=== PATIENT | female | born 1980 | race Caucasian/White ===

== ENCOUNTER → 2018-03-10 09:03 | Outpatient (CLI) | payer OTHER, SELFPAY ==
[2018-03-10 10:06] LABS: Hemoglobin 12.9 g/dl (12.0-15.0)
[2018-03-10 10:26] LABS: Hemoglobin A1c 5.2 % (4.2-6.3)
[2018-03-10 10:36] LABS: Ferritin 12 ng/mL (8-252); Iron 138 ug/dL (50-170); Iron Binding Capacity,Total 382 ug/dL (250-450); PERCENT IRON SATURATION 36.1 % (15.0-55.0)
[2018-03-13 13:14] LABS: Transferrin 302 mg/dL (200-370)
== END ==
PROVIDERS: Family Provider Internal Medicine; PCP Internal Medicine; Visit Provider Internal Medicine
DX: D50.9 Iron deficiency anemia, unspecified (principal); R73.03 Prediabetes
CPT/HCPCS: 36415; 82728; 83036; 83540; 83550; 84466; 85018

== ENCOUNTER 2018-11-15 19:32 | Emergency (ER) | payer OTHER, SELFPAY ==
[2018-11-15 19:33] VITALS: BP 120/93; PULSE 124; RESP 20; TEMP 36.7; O2SAT 95; BMI 44.5
--- NOTE | 2018-11-15 20:22 | ED.VISSUMM ---
- ER Visit Summary Date of Service: 11/15/18 Chief Complaint: Vomiting History of Present Illness: The patient is a 38 F presenting with nausea, vomiting, diarrhea. She states this started this morning. She has had approximately 20 episodes of vomiting today and 4 episodes of diarrhea. She denies blood in her stool or emesis. She states her son was recently diagnosed with rotavirus. She has a history of gastroparesis. History of previous cholecystectomy. Denies fever. Denies other complaints. Physical Examination: Vitals are stable. Patient is afebrile. Alert no acute distress. HEENT exam dry mucous membranes Neck is supple. Lungs are clear and equal bilaterally. Heart is regular and tachycardic Abdomen is soft diffuse tenderness with no rebound or guarding Extremities are unremarkable. Skin is warm and dry. No focal neurologic deficit. Remainder of exam is unremarkable. Emergency Department Course and Treatment: Patient given IV fluids, morphine, Zofran. CBC, chemistries unremarkable. Liver lipase are normal. Patient continues to feel nauseated and was given Phenergan. She has improvement following Phenergan. She is given prescription for Phenergan and Zofran. She is advised to follow up with her primary care physician. Advised return to ED for worsening complaints. Disposition: Discharge home Impression: Vomiting and diarrhea This note was generated with [employer] dictation software. It may contain incorrect words, spelling, and punctuation that were not noted in review of the chart prior to signing ED Disposition - Plan for ED Patient: Prescriptions: proMETHazine tablet [Phenergan] 25 mg PO Q6H PRN PRN #10 tablet PRN Reason: Nausea Ondansetron [Zofran Odt] 4 mg PO Q8H PRN PRN #10 tablet PRN Reason: Nausea Referrals: Elena Suggs [Primary Care Provider] -
[2018-11-15] MEDS: 0.9% Normal Saline 1,000 ML 1000 ML IV ×2 (20:38→22:28)
[2018-11-15] MEDS: Ondansetron 4 MG/2 ML Vial IV (20:39)
[2018-11-15] MEDS: Morphine 4 MG/ML Syringe IV (20:39)
[2018-11-15 20:52] LABS: Absolute Neutrophil Count 8.3 X10^3/uL (2.0-7.7); Basophil# 0.01 X10^3/uL; Basophil% 0.1 % (0-1); Differential Indicated SCAN CRITERIA MET; Hematocrit 38.5 % (37-47); Hemoglobin 12.7 g/dl (12.0-15.0); Lymphocyte % 6.5 % (19-41); Mean Corpuscular Hgb 27.4 pg (27.0-32.0); Mean Corpuscular Volume 83.2 fL (81-99); Mean Platelet Vol. 9.2 fl (6.2-12.0); Monocyte# 0.32 X10^3/uL; Monocyte% 3.4 % (0-10); Neutrophil # 8.33 X10^3/uL (2.7-7.7); Neutrophil % 89.8 % (47-70); POSITIVE COUNT NO; POSITIVE DIFFERENTIAL YES; POSITIVE MORPHOLOGY NO; Platelet Count 353 K/mm3 (150-450); RBC Distribution Width CV 13.1 % (11.6-14.6); RBC Distribution Width SD 39.7 fl (35.1-43.9); Red Blood Count 4.63 M/mm3 (4.2-5.4); White Blood Count 9.3 K/mm3 (4.4-11.0)
[2018-11-15 21:03] LABS: ALB/GLOB Ratio 0.9 RATIO (0.9-2.4); AST(SGOT) 19 U/L (15-37); Alanine Aminotransfer ALT/SGPT 24 U/L (13-56); Albumin, Serum 3.6 g/dL (3.2-5.0); Alkaline Phosphatase 93 U/L (45-117); Anion Gap 6 (5-15); BUN 9 mg/dL (7-18); BUN/Creat Ratio 9.8 RATIO (10-20); Calcium,Total 8.9 mg/dL (8.5-10.1); Chloride 104 mmol/L (98-107); Creatinine, Serum 0.92 mg/dL (0.55-1.02); Differential Comment SCANNED; EST Glomerular Filtration Rate 72 mL/min (>60); Est Glom Filt Rate - Afr Amer 87 mL/min (>60); Estimated Creatinine Clearance 79.84 ml/min; Globulin 3.8 g/dL (2.2-4.2); Glucose 98 mg/dL (74-106); Lipase 58 U/L (73-393); Potassium 3.5 mmol/L (3.5-5.1); Protein, Total 7.4 g/dL (6.4-8.2); Sodium Level 136 mmol/L (136-145)
[2018-11-15 21:39] VITALS: BP 132/71; PULSE 116; RESP 18; O2SAT 95
[2018-11-15] MEDS: proMETHazine 25 MG/ML Syringe 6.25 MG IV (22:30)
[2018-11-15 23:00] VITALS: BP 132/71; PULSE 111; RESP 16; O2SAT 95
--- NOTE | 2018-11-15 23:19 | ED.DEP ---
ED Disposition - Plan for ED Patient: Prescriptions: proMETHazine tablet [Phenergan] 25 mg PO Q6H PRN PRN #10 tablet PRN Reason: Nausea Ondansetron [Zofran Odt] 4 mg PO Q8H PRN PRN #10 tablet PRN Reason: Nausea Referrals: Elena Suggs [Primary Care Provider] -
[2018-11-15 23:33] VITALS: BP 132/71; PULSE 111; RESP 16; O2SAT 95
== END 2018-11-15 23:34 | disposition home or self-care (01) ==
PROVIDERS: Emergency Provider Emergency Medicine; Family Provider Internal Medicine; PCP Internal Medicine
DX: R11.2 Nausea with vomiting, unspecified (principal); R19.7 Diarrhea, unspecified; Z90.49 Acquired absence of other specified parts of digestive tract
CPT/HCPCS: 80053; 83690; 85025; 96361; 96374; 96375; 99283; J7030; J2405

== ENCOUNTER 2019-03-08 21:07 | Emergency (ER) | payer OTHER, SELFPAY ==
[2019-03-08 21:08] VITALS: BP 144/85; PULSE 77; RESP 20; TEMP 36.1; O2SAT 98; BMI 44.6
--- NOTE | 2019-03-08 21:57 | ED.VIS.GEN ---
History of Present Illness Chief Complaint: Headache Detail of Chief Complaint: And epigastric pain after vomiting Informant: Patient Onset: Today Context: Gradual Onset - Headache, Sudden Onset - Epigastric pain after vomiting Timing: Continuous - Both continuous since onset Quality: Throbbing unilateral headache and heartburn Location: Right side head and face and epigastrium Current Severity: Severe Maximum Severity: Severe Worsened by: Light with respect to headache, emesis regarding abdominal pain Relieved by: Nothing Associated Symptoms: Photophobia, unilateral headache, nausea and vomiting Narrative: She is a 38-year-old woman with history of migraine headaches who presents with unilateral throbbing right-sided headache with photophobia and nausea with one episode of vomiting. Patient reports severe epigastric pain after vomiting. She has history of hiatal hernia, GERD and gastritis. She states emesis was yellow-green in color. There is no coffee grounds noted or blood. She has not taken anything for her headache or epigastric pain. She denies any other symptoms. There is no radiation of discomfort. There is no food intolerance. Prior similar symptoms: Yes Recent Illness/Hospitalization: No - Past Medical History (1) History of migraine headaches Status: Acute (2) History of gastroesophageal reflux (GERD) Status: Acute Past Medical History - Allergies and Home Meds Allergies/Adverse Reactions: Allergies codeine Allergy (Verified 03/08/19 21:10) Shortness of breath Primary Care Physician: Noah Cortez [Primary Care Provider] - Prior records reviewed: No Surgical History: noncontributory Lives: Spouse/ Significant Other Smoking Status: Never smoker Alcohol: None Drugs: None Review of Systems General: Denies: Chills, Fever, Sweats Eyes: Denies: Visual changes - bilaterally, Blurred Vision - bilaterally, Diplopia ENT: Denies: Bilateral ear pain, Rhinorrhea, Sore throat Cardiovascular: Denies: Chest pain, Palpitations Respiratory: Denies: Dyspnea, Cough, Dyspnea on exertion Gastrointestinal: Reports: Abdominal pain, Nausea, Vomiting. Denies: Diarrhea, Constipation, Melena, Hematochezia, -, - Genitourinary: Denies: Dysuria, Hematuria, Frequency Musculoskeletal: Denies: Back pain, Extremity Pain Skin: Denies: Rash, Wounds Neurological: Reports: Headache. Denies: Weakness, Parasthesia, Numbness, -, - Hematologic: Denies: Easy bruising, Easy bleeding Allergy: Denies: Uticaria, Swelling of the mouth Physical Exam Vital Signs/Narrative: Vital Signs Temp Pulse Resp BP Pulse Ox 03/08/19 21:08 97 F L 77 20 H 144/85 H 98 Inital Vital Signs reviewed: Yes General: Well nourished, Well developed, Acute Distress - Is pressing on the epigastric area and moaning Head: Normocephalic, Atraumatic Eyes: Perrl, EOMI, - - Scopic exam reveals normal cup-to-disc ratio and no papilledema. There is no evidence of exudate or hemorrhage.. Negative for: Pale conjunctiva, Scleral icterus ENT: Moist mucous membranes, No rhinorrhea Neck: Supple, Nontender Cardiovascular: Regular rate, Regular rhythm, No murmurs, Normal S1, Normal S2 Respiratory: No distress, CTA bilaterally, Chest nontender Abdomen: Soft, Nondistended, Normal bowel sounds, Tender - Epigastrium. Negative for: Finnegan's sign Rectal: Deferred Back: Nontender, Normal Inspection Extremities: Nontender, No edema Skin: Normal color, No rash Neurological: Alert, Oriented x3, Cranial nerves II-XII grossly intact, Normal Strength, Normal Sensation, Normal DTR, - - Michelle testing is normal. Psychological: Normal affect, Normal Mood Diagnostic/Tx/Re-eval - EKG Initial EKG Interpretation: Sinus Rhythm - Ventricular rate is 68. NE interval is 146 ms. QRS duration 86 ms. QT interval is 412 seconds. [place] is normal. The EKG is normal. Prior: Unchanged - Medical Decision Making Ki was treated with IV Toradol, Reglan and Benadryl for her headache. She received a GI cocktail for her epigastric pain that started after emesis. Will reevaluate in 30 to 60 minutes Refused Reglan because it makes her mental health unstable. Compazine was ordered in its place. She was reassessed at 2300. She is no longer moaning. Her abdominal pain is resolved. Her headache is essentially resolved. He feels comfortable going home. Will discharge to home with appropriate home-going instructions. ED Disposition - Plan for ED Patient: Disposition: Home or Assisted Living Diagnosis: Migraine headache without aura, Esophagitis, Nausea and vomiting Instructions: ED, Migraine (Classical), GERD (Adult) Referrals: Noah Cortez [Primary Care Provider] - As Needed
[2019-03-08] MEDS: DiphenhydrAMINE 50 MG/ML Syringe 25 MG IV (22:13)
[2019-03-08] MEDS: Ketorolac 30 MG/ML Syringe 15 MG IV (22:13)
[2019-03-08] MEDS: Mag Hydrox/Al Hydrox/Simeth 30 ML UDC PO (22:13)
[2019-03-08] MEDS: proCHLORPERazine 10 MG/2 ML Vial IV (22:18)
[2019-03-08 23:12] VITALS: PULSE 73; RESP 18; O2SAT 98
== END 2019-03-08 23:13 | disposition home or self-care (01) ==
PROVIDERS: Emergency Provider Emergency Medicine; Family Provider Family Medicine; PCP Family Medicine
DX: G43.009 Migraine without aura, not intractable, without status migrainosus (principal); K21.0 Gastro-esophageal reflux disease with esophagitis; R11.2 Nausea with vomiting, unspecified; K29.70 Gastritis, unspecified, without bleeding; K44.9 Diaphragmatic hernia without obstruction or gangrene
CPT/HCPCS: 93005; 96374; 96375; 99284; J7030; A4216

== ENCOUNTER 2019-08-26 13:11 | Emergency (ER) | payer OTHER, SELFPAY ==
[2019-08-26 13:12] VITALS: BP 146/89; PULSE 85; RESP 20; TEMP 37.2; O2SAT 97; BMI 44.6
--- NOTE | 2019-08-26 13:35 | RAD_ITS ---
STUDY: X-RAY CHEST REASON FOR EXAM: Female, 39 years old. DIAGNOSED WITH INFLUENZA B THIS PAST WEDS PER PATIENT. NOW FEELS WORSE WITH WEAKNESS, DIZZINESS AND CHEST COUGH AND CONGESTION WORSENING. TECHNIQUE: PA and lateral views of the chest. COMPARISON: None. FINDINGS: The lungs are clear and expanded. There is no demonstrated pleural abnormality. Normal size heart. Normal mediastinum and gustavo. Normal visualized pulmonary arteries. Normal visualized aortic arch and descending thoracic aorta. There are diffuse degenerative changes of the visualized thoracic spine. Normal visualized ribs, clavicles, and shoulders. There is postoperative change of the upper abdomen. RAD/Chest PA and Lateral IMPRESSION: Normal x-ray examination of the chest. Electronically Signed: Marky Calles MD at 14:19 EST , Service support ,
[2019-08-26] MEDS: 0.9% Normal Saline 1,000 ML 999 ML IV (13:47)
[2019-08-26 13:49] VITALS: PULSE 96; RESP 20
[2019-08-26] MEDS: Ipratropium/Albuterol Sulfate 3 ML AMPUL.NEB INHALATION (13:49)
--- NOTE | 2019-08-26 14:16 | ED.DCSUM_ITS ---
History of Present Illness Informant: Patient, Significant Other Onset: Days - 4 days Context: Gradual Onset Timing: Continuous Quality: aching Location: myalgias Current Severity: Severe Maximum Severity: Severe Worsened by: Swallowing, Eating Solids, Drinking Liquids Relieved by: Tylenol, NSAIDs Associated Symptoms: Myalgias, Nausea, Diarrhea, Productive Cough. Negative for: Nasal Congestion, Headache, Sinus Pressure, Vomiting, Shortness of Breath, Chest Pain, Nonproductive cough, Hemoptysis Narrative: 39-year-old female history of asthma and fibromyalgia and gastroparesis presents to the emergency department with flulike symptoms. She was diagnosed with infl uenza B about 4 days ago. She went back to the urgent care today because she is still having a cough and they told her to go to the emergency department because she may have pneumonia. She has not had a fever today. She is not having any vomiting. Has been having diarrhea since she started the Tamiflu 3 days ago. No melena or hematochezia. No chest pain or shortness of breath. No wheezing. No leg pain or swelling. No urinary symptoms. No rash. No sore throat or congestion. No headache or neck pain. She is not lightheaded or dizzy. Prior similar symptoms: Yes Recent Illness/Hospitalization: Yes <Jono Terrazas - Last Filed: 08/26/19 14:31> <Karen Damon - Last Filed: 08/26/19 15:05> Chief Complaint: Cough Past Medical History Prior records reviewed: Yes Past Medical History: - - Fibromyalgia gastroparesis asthma Surgical History: cholecystectomy Lives: With Family Smoking Status: Former smoker Alcohol: None Drugs: None <Jono Terrazas - Last Filed: 08/26/19 14:31> <Karen Damon - Last Filed: 08/26/19 15:05> - Allergies and Home Meds Allergies/Adverse Reactions: Allergies codeine Allergy (Verified 08/26/19 13:11) Shortness of breath Primary Care Physician: Noah Cortez [Primary Care Provider] - Review of Systems All systems negative except as indicated General: Reports: Chills, Fever, Malaise Eyes: Denies: Visual changes - bilaterally, Blurred Vision - bilaterally, Diplopia ENT: Reports: Rhinorrhea, Sore throat Cardiovascular: Denies: Chest pain, Palpitations, Heart racing Respiratory: Reports: Cough, Sputum. Denies: Dyspnea, Dyspnea on exertion, Orthopnea, Paroxysmal nocturnal dyspnea Gastrointestinal: Reports: Nausea, Diarrhea. Denies: Abdominal pain, Vomiting, Constipation, Melena, Hematochezia Genitourinary: Denies: Dysuria, Hematuria, Frequency Musculoskeletal: Reports: Myalgias. Denies: Arthralgias, Neck pain, Back pain, Swelling, Extremity Pain Skin: Denies: Rash, Abscess, Abrasions, Wounds Neurological: Denies: Headache, Weakness, Parasthesia <Jono Terrazas - Last Filed: 08/26/19 14:31> Physical Exam Vital Signs/Narrative: Vital Signs Temp Pulse Resp BP Pulse Ox 08/26/19 13:12 98.9 F 85 20 H 146/89 H 97 Inital Vital Signs reviewed: Yes General: Well nourished, Well developed Head: Normocephalic, Atraumatic Eyes: Perrl, EOMI Ears: Normal external canal, TM's clear Nose: Normal Inspection, No Rhinorrhea Mouth/Throat: Normal Inspection, No Posterior Erythema, Airway Patent Tonsils: Negative for: Right Tonsilar Erythema, Right Tonsilar Exudates, Left Tonsilar Exudates, Right Tonsilar Swelling, Left Tonsilar Swelling Neck: Supple, Nontender, No Lymphadenopathy, No Meningismus Cardiovascular: Regular rate, Regular rhythm, No murmurs Respiratory: No distress, CTA bilaterally, Wheezing Abdomen: Soft, Nontender, Nondistended, Normal bowel sounds, No masses Back: Nontender, Normal Inspection Extremities: Nontender, No edema Skin: Normal color, No rash Neurological: Alert, Oriented x3 Psychological: Normal affect <Jono Terrazas - Last Filed: 08/26/19 14:31> Vital Signs/Narrative: Vital Signs Temp Pulse Resp BP Pulse Ox 08/26/19 13:49 96 20 H 08/26/19 13:12 98.9 F 85 20 H 146/89 H 97 <Karen Damon - Last Filed: 08/26/19 15:05> Diagnostic/Tx/Re-eval Chest X-Ray - ED: 2 View, Read by ED Physician, Read by Radiologist, No Acute Disease - Medical Decision Making Patient was treated with an aerosol. 2 view chest x-ray was unremarkable. Patient was given a liter of IV fluids. Repeat exam she feels much improved. Repeat abdominal exam soft and nontender. Patient is able to tolerate by mouth. She states that she already has Zofran to take at home. She was encouraged to use her nebulizers and aerosols which she has been noncompliant with for the last several days. <Jono Terrazas - Last Filed: 08/26/19 14:31> - Medical Decision Making I have personally performed a [id number] assessment of the patient and have reviewed the PA note. My bee findings include 39-year-old female presenting with cough, recently diagnosed with influenza. She has no fever today. Chest x-ray is unremarkable. Advised to follow-up with primary care physician. Advised return to ED for worsening complaints. <Karen Damon - Last Filed: 08/26/19 15:05> ED Disposition <Jono Terrazas - Last Filed: 08/26/19 14:31> <Karen Damon - Last Filed: 08/26/19 15:05> - Plan for ED Patient: Disposition: Home or Assisted Living Diagnosis: URI due to influenza, History of gastroesophageal reflux (GERD), History of migraine headaches Instructions: INFLUENZA (Adult) Referrals: Noah Cortez [Primary Care Provider] -
== END 2019-08-26 14:47 | disposition home or self-care (01) ==
PROVIDERS: Emergency Provider Physician Assistant Medical; PCP Family Medicine
DX: J10.1 Influenza due to other identified influenza virus with other respiratory manifestations (principal); K21.9 Gastro-esophageal reflux disease without esophagitis; M79.7 Fibromyalgia; J45.909 Unspecified asthma, uncomplicated; Z79.899 Other long term (current) drug therapy; Z87.891 Personal history of nicotine dependence; G43.909 Migraine, unspecified, not intractable, without status migrainosus
CPT/HCPCS: 71046; 94640; 96360; 99282; J7030

== ENCOUNTER → 2020-08-18 10:51 | Outpatient (CLI) | payer OTHER, SELFPAY ==
[2020-08-14 13:39] VITALS: BMI 47.1
--- NOTE | 2020-08-18 10:56 | US_ITS ---
STUDY: ULTRASOUND OF THE FEMALE PELVIS - COMPLETE REASON FOR EXAM: Female, 40 years old. Heavy pain LMP: 07/26/2020. TECHNIQUE: Transabdominal and Transvaginal TECHNICAL QUALITY: Adequate. COMPARISON: None. FINDINGS: The uterus is anteverted and is tilted to the left side of the pelvis. The uterus measures 9.1 cm x 7.5 cm x 5.1 cm. There is a 4.9 cm x 4.8 cm x 3.4 cm cervical fibroid. The endometrium measures 1.3 mm in thickness, and is hyperechoic. There is no demonstrated endometrial mass. There is no demonstrated myometrial mass. I.U.D. - The patient does not have an I.U.D. The right ovary is visualized. The right ovary measures 2.6 cm x 2.4 cm x 1.9 cm. There is no right ovarian cyst or ovarian mass. There is no visualized right adnexal mass or complex lesion. There is normal arterial and normal venous vascularity. The left ovary is visualized. The left ovary measures 2.6 cm x 1.6 cm x 2.3 cm. There is no left ovarian cyst or ovarian mass. There is no visualized left adnexal mass or complex lesion. There is normal arterial and normal venous vascularity. There is no fluid in the cul-de-sac. The pre void volume of the bladder was 337 ml. Polycystic ovary disease: No. US/Pelvic (Non ) IMPRESSION: 4.9 cm x 4.8 cm x 3.4 cm cervical fibroid. Electronically Signed: Marcio Lorenz MD at 15:32 EST , Service support ,
--- NOTE | 2020-08-18 10:56 | US_ITS ---
STUDY: ULTRASOUND OF THE FEMALE PELVIS - COMPLETE REASON FOR EXAM: Female, 40 years old. Heavy pain LMP: 07/26/2020. TECHNIQUE: Transabdominal and Transvaginal TECHNICAL QUALITY: Adequate. COMPARISON: None. FINDINGS: The uterus is anteverted and is tilted to the left side of the pelvis. The uterus measures 9.1 cm x 7.5 cm x 5.1 cm. There is a 4.9 cm x 4.8 cm x 3.4 cm cervical fibroid. The endometrium measures 1.3 mm in thickness, and is hyperechoic. There is no demonstrated endometrial mass. There is no demonstrated myometrial mass. I.U.D. - The patient does not have an I.U.D. The right ovary is visualized. The right ovary measures 2.6 cm x 2.4 cm x 1.9 cm. There is no right ovarian cyst or ovarian mass. There is no visualized right adnexal mass or complex lesion. There is normal arterial and normal venous vascularity. The left ovary is visualized. The left ovary measures 2.6 cm x 1.6 cm x 2.3 cm. There is no left ovarian cyst or ovarian mass. There is no visualized left adnexal mass or complex lesion. There is normal arterial and normal venous vascularity. There is no fluid in the cul-de-sac. The pre void volume of the bladder was 337 ml. Polycystic ovary disease: No. US/Transvaginal Non- IMPRESSION: 4.9 cm x 4.8 cm x 3.4 cm cervical fibroid. Electronically Signed: Marcio Lorenz MD at 15:32 EST , Service support ,
== END ==
PROVIDERS: Referring Provider Obstetrics & Gynecology; Visit Provider Obstetrics & Gynecology
DX: N92.0 Excessive and frequent menstruation with regular cycle (principal)
CPT/HCPCS: 76830; 76856

== ENCOUNTER 2020-09-30 06:18 | Day surgery (SDC) | payer OTHER, SELFPAY ==
[2020-08-22 13:01] VITALS: BMI 47.2
[2020-09-15 11:14] VITALS: BMI 47.5
[2020-09-29 10:20] LABS: Hematocrit 36.3 % (37-47); Mean Corp Hgb Conc 30.3 g/dL (32-36); Mean Corpuscular Volume 85.8 fL (81-99); Mean Platelet Vol. 9.5 fl (6.2-12.0); Platelet Count 391 K/mm3 (150-450); RBC Distribution Width CV 18.9 % (11.6-14.6); RBC Distribution Width SD 56.9 fl (35.1-43.9); Red Blood Count 4.23 M/mm3 (4.2-5.4)
[2020-09-29 10:53] LABS: Glucose 114 mg/dL (74-106); Magnesium 1.7 mg/dL (1.6-2.6)
[2020-09-30] VITALS (15 sets, daily range): BP systolic 100–151; BP diastolic 48–87; PULSE 89–109; RESP 16–18; TEMP 36.3–36.8; O2SAT 89–100; BMI 47.4; BMI 47.5
[2020-09-30 06:58] LABS: Internal QC Validated? YES +Cl - CLEAR BKGD; Pregnancy, Urine Negative Negative
[2020-09-30] MEDS: Phenazopyridine 95 MG Tablet 190 MG PO (07:00)
[2020-09-30] MEDS: Celecoxib 200 MG Capsule 400 MG PO (07:00)
[2020-09-30] MEDS: Acetaminophen 500 MG Tablet 1000 MG PO ×3 (07:00→23:15)
[2020-09-30] MEDS: dexAMETHasone 10 MG/ML Vial 8 MG IV (07:00)
[2020-09-30] MEDS: Gabapentin 600 MG Tablet PO (07:00)
[2020-09-30] MEDS: Lactated Ringers 1,000 ML 40 ML IV ×4 (07:00→14:34)
--- NOTE | 2020-09-30 07:19 | PCM.HPOB.BLA ---
- Problem List (1) Abnormal uterine bleeding Status: Acute History and Physical Date of Admission: 09/30/20 Intake Vital Signs 09/15/20 Height 5 ft 7 in 09/15/20 Weight: 303 lb 8 oz 09/15/20 BMI 47.5 09/15/20 BP 120/76 Intake Visit Reasons: robotic TVH BS Cysto Sales Support Coordinator Required: No Is patient in pain?: No Allergies metoclopramide [From Reglan] Allergy (Mild, Verified 09/15/20 11:15) psych codeine Allergy (Verified 09/15/20 11:15) Shortness of breath Medications Esomeprazole Mag Trihydrate [Nexium] 40 mg PO DAILY 11/15/18 [History Confirmed 09/15/20] bupropion HCl 150 mg 24 hr tablet, extended release 300 mg PO DAILY tab 08/14/20 [History Confirmed 09/15/20] cholecalciferol (vitamin D3) 50 mcg (2,000 unit) capsule 50 mcg PO DAILY 08/14/20 [History Confirmed 09/15/20] metoprolol succinate 25 mg tablet,extended release 24 hr 50 mg PO DAILY tab 08/14/20 [History Confirmed 09/15/20] multivitamin 1 tab PO DAILY 08/14/20 [History Confirmed 09/15/20] promethazine 25 mg tablet 12.5 mg PO Q4H PRN PRN tab 08/14/20 [History Confirmed 09/15/20] Is last menstrual period known: Yes Post menopausal: No Patient : No : No PFSH Medical History Asthma (Chronic) Acid reflux (Acute) Chavez disease (Chronic) Anemia (Acute) GI bleed (Acute) Gastroparesis (Chronic) Anxiety (Acute) Insomnia (Acute) Surgical History History of esophagogastroduodenoscopy (EGD) (Resolved) S/P cholecystectomy (Resolved) S/P tonsillectomy (Resolved) hysteroscopy ablation (Resolved) Family History Grandfather Prostate cancer Grandmother Diabetes Other Kidney disease Social History (Updated 09/15/20 @ 14:[address] Sayda Wills MD) Smoking Status: Former smoker alcohol intake: never substance use type: does not use caffeine: Yes what type of physical activity do you participate in: none seatbelt use: always do you feel safe at home: Yes additional social history: - Michael HPI robotic TVH BS Cysto: Details: JULISA PIZANO is a 40 year old who presents for pre-op visit for RTLH, BS, possible BSO, cysto for failed endometrial ablation. Pregancy History 2 Elective abortions Hx Para 2 Spontaneous abortions Hx # Term Pregnancies Ectopic pregnancies Hx # Pregnancies Multiple births # of living children Past Pregnancies Del. Date Name GA/Weeks Outcome Route Bth Weight Infant Gen Labor Lgth Anesthesia Del Locatn Provider FOB Unknown Leander Unknown Jamie ROS Const Constitutional: Reports system reviewed and no additional complaints, except as docu; denies chills or fever(s) Eyes Eyes: Reports system reviewed and no additional complaints, except as docu ENT ENT: Reports system reviewed and no additional complaints, except as docu Cardio Card: Reports system reviewed and no additional complaints, except as docu; denies chest pain, leg swelling or rapid, pounding, or irregular heartbeat Resp Resp: Reports system reviewed and no additional complaints, except as docu; denies dyspnea GI GI: Reports system reviewed and no additional complaints, except as docu, bloating and nausea; denies constipation or vomiting : Reports system reviewed and no additional complaints, except as docu and pelvic pain; denies painful urination, urinary frequency, urinary hesitancy, urinary urgency, vaginal discharge, vaginal odor or vaginal itching Musc Musc: Reports system reviewed and no additional complaints, except as docu Skin Skin/Breast: Reports system reviewed and no additional complaints, except as docu Neuro Neuro: Reports system reviewed and no additional complaints, except as docu Psych Psych: Reports system reviewed and no additional complaints, except as docu Endo Endo: Reports system reviewed and no additional complaints, except as docu Exam Const General: cooperative, healthy appearing, comfortable, well developed, well groomed Orientation: alert, awake, oriented x3 Neck Neck: normal visual inspection, full ROM Resp Effort & Inspection: normal respiratory effort, able to speak in complete sentences, symmetric chest movement Cardio Rate: regular rate Skin General: no rashes or lesions noted, elasticity normal, turgor normal Lesions: no lesions Rashes: no rashes Neuro General: alert, awake, oriented x3 Cranial Nerves: CN's II-XI intact bilaterally, PERRL, EOM intact bilaterally Cognition: normal cognition Speech: speech normal Gait: normal gait Extrem General: normal to inspection, full ROM, no pedal edema Psych Appearance: grossly normal Mental Status: mental status grossly normal Mood: congruent mood Affect: normal affect Speech and Movement: speech and movement normal Attitude: cooperative Thought Process: normal Thought Content: normal Assessment & Plan 1. Abnormal uterine bleeding N93.9 Plan Patient presents for pre-op visit for robotic total laparoscopic hysterectomy, bilateral salpingectomy, possible bilateral salpingoophorectomy, cystoscopy Received surgical clearance by PCP and GI No changes to medical history or ROS. Again reviewed the risks of surgery and patient denies questions and concerns. Consent form signed with patient in office today. UPDATE- I have seen the patient and performed any clinically relevant updates to the history and physical exam. Sayda Wills MD
[2020-09-30 07:40] LABS: Bedside Glucose 63 mg/dL (70-110)
--- NOTE | 2020-09-30 08:35 | HYST_PTH ---
PATIENT: JULISA PIZANO LOC: [facility] [place] U#:[id number] AGE/SX: 40/F ROOM: RE09/30/[address]: Dr. Sayda Wills MD : 1980 BED: DIS: 10/01/2020 SPEC #: [id number] RECD: 09/30/20 14:21 STATUS: YOLY ZUÑIGA #: [id number] ONUR: 09/30/20 08:[address]: Sayda Wills DEPT: SURGICAL PATHOLOGY RECD BY: Gayle Mcnally Tissues: Uterus, NOS Procedures: Surgery Specimen Level V HEADER OPERATION: ERAS, robotic assisted total laparoscopic hysterectomy, bilateral salpingectomy PRE-OP DIAGNOSIS: Abnormal uterine bleeding TISSUE SUBMITTED: Uterus, cervix, bilateral fallopian tubes MICROSCOPIC DIAGNOSIS Uterus, cervix and bilateral fallopian tubes, hysterectomy and bilateral salpingectomy: Cervix - mild chronic inflammation and squamous metaplasia. Endometrium - proliferative endometrium. Myometrium - cellular leiomyoma (5 cm in greatest dimension). Bilateral fallopian tubes - no pathologic diagnosis. Paratubal cyst. SJ:rg 10/02/2020 MICROSCOPIC DESCRIPTION Slides are reviewed. GROSS DESCRIPTION Received in fixative is one container labeled with the patient's name and designated uterus. The specimen consists of a uterus with attached cervix measuring 9.7 x 7.5 x 5 cm and weighing 160 gm. Also present in the specimen container is an irregular fragment of lobulated pink-white, rubbery soft tissue measuring 5 x 3.5 cm and grossly resembling a leiomyoma. Sections of this mass reveal michaud whorled cut surfaces without areas of hemorrhage, necrosis or cystic degeneration. Also present in the container are two fallopian tubes, each with an average length of 6.5 cm and average diameter of 0.6 cm. One fallopian tube has a normal fimbriated end and contains a smooth, glistening cyst containing clear fluid. The cyst measures 1.5 cm in greatest dimension. The other fallopian tube is similar in appearance. No paratubal cysts are identified. The ectocervix is grossly unremarkable. The endocervical canal measures 3.3 cm in length and is grossly unremarkable. The triangular endometrial cavity measures 3.8 x 3.5 cm. The velvety, light michaud endometrium measures up to 0.2 cm in thickness and is free of mass lesions. The uterine wall measures up to 2.5 cm in thickness and does not reveal any additional mass lesions. [employer]el [employer] sections are submitted in ten cassettes as follows: 1 - anterior cervix, 2 - posterior cervix, 3 & 4 - anterior uterine wall, 5 & 6 - posterior uterine wall, 7 & 8 - nodular tissue free in container, 9 - one fallopian tube and paratubal cyst, 10 - the other fallopian tube. / AM:rashmi 10/01/20 TC:1 CPT: 75108
[2020-09-30] MEDS: Ropivacaine 0.5% 30 ML Vial (09:00)
[2020-09-30] MEDS: Ketorolac 30 MG/ML Syringe IV ×2 (17:10→23:18)
--- NOTE | 2020-09-30 18:22 | OP.PCM_ITS ---
Problem List (1) Abnormal uterine bleeding Status: Acute Report of Operation Date of Procedure: 09/30/20 Pre-Operative Diagnosis: Abnormal uterine bleeding, failed endometrial ablation Post-Operative Diagnosis: Same Surgery/Procedure Performed:: Robotic assisted total laparoscopic hysterectomy, bilateral salpingectomy, cystoscopy Description of Surgical Findings:: Globally enlarged uterus with large posterior fibroid filling the posterior cul-de-sac. Normal-appearing bilateral fallopian tubes and ovaries. basic sciences professor: Mukesh Molina Type of Anesthesia:: General Special Medications: Pyridium pre-op Specimen's removed: Uterus, cervix, bilateral fallopian tubes Drains: Curry Estimated Blood Loss (mL): 50 cc Description of Procedure: The patient was taken to the operating room where general anesthesia was obtained without difficulty. She was prepped and draped in the dorsolithotomy position with yellowfin stirrups. Weighted speculum was placed in the posterior aspect of the vagina and the anterior lip of the cervix was grasped with a single-tooth tenaculum. The cervix was sequentially dilated in order to accommodate a Aventicular uterine manipulator. Gloves were changed and attention was directed to the abdominal cavity. Initially, the umbilicus was instilled with 10 cc of 0.25% Marcaine and grasped and elevated with towel clamps. A varies needle was inserted through the base of the umbilicus, but opening pressure was noted to be high and preoperative placement could not be confirmed. A 5 mm incision was made in the left upper quadrant and varies needle insufflation was again attempted, but unsuccessful. Attempt was then made at entry through a 5 mm Optiview port in the left upper quadrant and at the umbilicus, but both were unsuccessful. The decision was made to proceed with open entry. A vertical incision was made at the base of the umbilicus and extended inferiorly. The subcutaneous tissue was dissected away until the fascia could be identified. The fascia was grasped sequentially with Everardo clamps. The fascia was incised using the scalpel. This incision was extended through the peritoneum and abdominal entry was confirmed. 0 Vicryl sutures were placed in the fascia to used to hold the Monique trocar in place. A balloon trocar was inserted and the balloon was inflated. Towel clamps were used to maintain a seal to decrease loss of insufflation. The abdomen was insufflated. A 5 mm port was placed in the left upper quadrant. 8 mm incisions were made in the right and left lower quadrants and approximately 2 fingerbreadths above the umbilicus and robotic ports were placed. A 12 mm accessory port was placed in the right upper quadrant. Findings were as above. The patient was placed in steep Trendelenburg positioning and the bowel was displaced superiorly. The da Wander robot was subsequently docked without any complications. The bilateral fallopian tubes were elevated and grasped. The mesosalpinx was cauterized and transected bilaterally. The fallopian tubes were amputated at the cornual region and removed through the accessory port. The right utero-ovarian ligament was identified and cauterized and transected with the bipolar cautery and the EndoShears. This was followed by the round ligament, which was cauterized and transected in a similar fashion. The anterior leaf of the broad ligament. While attempting to dissect the bladder off the uterus and skeletonize the uterine arteries, visual visualization was noted to be poor due to lack of operative space given the location of the camera port. Complete the remainder of the case laparoscopically. The robot was undocked. The left utero-ovarian ligament was identified, cauterized, and transected using the LigaSure device. The round ligament was grasped, cauterized, and transected. The bladder flap was further developed and the bladder was noted to be well out of the operative field. The uterine arteries bilaterally were skeletonized, cauterized, and transected. At this time, the uterus was blanched effectively demonstrating that the blood supply to the uterus had been terminated. Point, attention was directed to the large posterior fibroid. Monopolar scissors were used to make an incision in the uterine serosa which was carried down to the level of the fibroid effectively dissecting through the capsule of the fibroid. The fibroid was grasped using a single-tooth tenaculum and a combination of blunt and sharp dissection were used to remove the fibroid from the uterus. The colpotomy cup was made with monopolar scissors and carried around the entire cervicovaginal junction until the cervix and uterus were amputated. The cervix and uterus were removed from the abdominal cavity through the vagina. The fibroid was then removed through the vagina. A pneumooccluder was then placed in the vagina. At this point, the robot was again docked to allow for closure of the vaginal cuff. The cuff was then closed in a running fashion using oh V-Loc suture. The abdomen was copiously irrigated, cleared of all clots and debris, and the pedicles were examined and noted to be hemostatic. Amanda was placed over the pedicles. Occluder was then removed from the vagina. Attention was then directed to the pelvis to perform a cystoscopy. Curry catheter was removed and the cystoscope was introduced into the bladder. The bladder was inspected and no evidence of trauma was noted. Vigorous spill was noted bilaterally from the ureters. The cystoscope was then removed from the bladder. Gloves were changed and all the instruments were subsequently removed from the patient?s abdomen and vagina. The fascial defect in the umbilical incision was closed using 0 Vicryl suture. The skin incisions were closed with #4-0 Monocryl for excellent hemostasis and reapproximation. All counts were correct x2. The patient was awakened and taken to the recovery room in stable condition. - Complications None apparent - Admit VTE Documentation VTE Present on Admission: No VTE Mechan Device Prophylaxis: SCD's VTE Pharm Prophylaxis ordered?: Yes Multi Select Codes - Urinary/Genital Urinary/Genital CPT Codes: 81434 TLH+BS/O >250gr uterus - Robotic assisted
[2020-09-30] MEDS: oxyCODONE 5 MG Tablet PO (21:56)
[2020-09-30] MEDS: Docusate Sodium 100 MG Capsule PO (21:56)
[2020-09-30] MEDS: Ondansetron ODT 4 MG Tablet PO (21:56)
[2020-09-30] MEDS: 0.9% Saline Lock 10 ML Syringe IV (23:16)
[2020-10-01] MEDS: Ketorolac 30 MG/ML Syringe IV (05:08)
[2020-10-01] MEDS: Acetaminophen 500 MG Tablet 1000 MG PO ×2 (05:09→12:44)
[2020-10-01 05:30] VITALS: BP 117/59; PULSE 86; RESP 16; TEMP 36.3; O2SAT 100
[2020-10-01 05:32] LABS: Hematocrit 32.8 % (37-47); Hemoglobin 9.6 g/dL (12.0-15.0); Mean Corp Hgb Conc 29.3 g/dL (32-36); Mean Corpuscular Hgb 25.6 pg (27.0-32.0); Mean Corpuscular Volume 87.5 fL (81-99); Mean Platelet Vol. 9.3 fl (6.2-12.0); Platelet Count 377 K/mm3 (150-450); RBC Distribution Width CV 18.9 % (11.6-14.6); RBC Distribution Width SD 59.9 fl (35.1-43.9); Red Blood Count 3.75 M/mm3 (4.2-5.4); White Blood Count 13.6 K/mm3 (4.4-11.0)
[2020-10-01 08:02] VITALS: O2SAT 100
--- NOTE | 2020-10-01 08:31 | PN.OBGYN_ITS ---
Patient Problems: Active and Suspected Problems (Last Reviewed 09/15/20 @ 11:16 by Jesika Singh) Abnormal uterine bleeding (Acute) Subjective: Patient seen and examined. Reports doing well. Pain well controlled with NSAIDs and Tylenol. Tolerating clear liquids without nausea or vomiting. Attempting to advance diet this morning. Was able to ambulate last night without difficulty. Curry catheter to come out this morning. Objective: Laboratory Tests 10/01/20 09/30/20 09/30/20 Range/Units 05:26 06:50 06:45 WBC 13.6 H (4.4-11.0) K/mm3 RBC 3.75 L (4.2-5.4) M/mm3 Hgb 9.6 L (12.0-15.0) g/dL Hct 32.8 L (37-47) % MCV 87.5 (81-99) fL MCH 25.6 L (27.0-32.0) pg MCHC 29.3 L (32-36) g/dL RDW Std Deviation 59.9 H (35.1-43.9) fl RDW Coeff of Saud 18.9 H (11.6-14.6) % Plt Count 377 (150-450) K/mm3 MPV 9.3 (6.2-12.0) fl Glucose (74-106) mg/dL Magnesium (1.6-2.6) mg/dL Urine Test Negative Negative POC Glucose 63 L (70-110) mg/dL Blood Type Antibody Screen 09/29/20 09/29/20 09/29/20 Range/Units 09:37 09:37 09:37 WBC 8.0 (4.4-11.0) K/mm3 RBC 4.23 (4.2-5.4) M/mm3 Hgb 11.0 L (12.0-15.0) g/dL Hct 36.3 L (37-47) % MCV 85.8 (81-99) fL MCH 26.0 L (27.0-32.0) pg MCHC 30.3 L (32-36) g/dL RDW Std Deviation 56.9 H (35.1-43.9) fl RDW Coeff of Saud 18.9 H (11.6-14.6) % Plt Count 391 (150-450) K/mm3 MPV 9.5 (6.2-12.0) fl Glucose 114 H (74-106) mg/dL Magnesium 1.7 (1.6-2.6) mg/dL Urine Test Negative POC Glucose (70-110) mg/dL Blood Type O POSITIVE Antibody Screen NEGATIVE - Physical Exam Vitals/I&O's: Vital Signs Temp Pulse Resp BP Pulse Ox 97.4 F L 86 16 117/59 L 100 10/01/20 05:30 10/01/20 05:30 10/01/20 05:30 10/01/20 05:30 10/01/20 08:02 Oxygen Flow Rate (L/min) 2 Oxygen Delivery Method Nasal Cannula Weight: 302 lb 11.115 oz Body Mass Index (BMI) 47.5 Intake and Output for Last 24 Hours 09/29/20 09/30/20 10/01/20 23:59 23:59 23:59 Intake Total 4715 / 4715 1197.33 / 1197.33 Output Total 1850 / 1850 1100 / 1100 Balance 2865 / 2865 97.33 / 97.33 General: Alert, Oriented x3, Cooperative, No apparent distress, Well developed, Well nourished HEENT: Atraumatic, PERRLA, EOMI, Normocephalic Neck: Supple, No JVD Lungs: Clear to auscultation, Normal air movement Cardiovascular: Regular rate, Regular Rhythm Abdomen: Bowel Sounds Present, Soft, Non Tender, Non-Distended, - - Incisions clean dry and intact with dressings in place Extremities: No edema, No Calf Tenderness Neurological: Cranial nerves II-XII grossly intact, Neuro grossly intact Psych/Mental Status: Normal Affect, Appropriate Microbiology Past 72 Hours 09/29/20 09:30 Interface Orders SARS-CoV-2 Antigen (Rapid) - Final Laboratory Results 10/01/20 05:26: WBC 13.6 H, RBC 3.75 L, Hgb 9.6 L, Hct 32.8 L, MCV 87.5, MCH 25.6 L, MCHC 29.3 L, RDW Std Deviation 59.9 H, RDW Coeff of Saud 18.9 H, Plt Count 377, MPV 9.3 Current Medications Acetaminophen (Acetaminophen 500 Mg Tablet) 1,000 mg PO Q6 AGNES Last Admin: 10/01/20 05:09 Dose: 1,000 mg Documented by: Albuterol Sulfate (Albuterol 2.5 Mg/3 Ml Vial.Neb.) 2.5 mg INHALATION Q6H PRN PRN PRN Reason: Asthma Bupropion HCl (Bupropion (Xl) 150 Mg Tablet.Xl) 300 mg PO DAILY [facility] Docusate Sodium (Docusate Sodium 100 Mg Capsule) 100 mg PO BID [facility] Last Admin: 09/30/20 21:56 Dose: 100 mg Documented by: Enoxaparin Sodium (Enoxaparin 40 Mg/0.4 Ml Syringe) 40 mg SC DAILY [facility] Sodium Chloride () 250 mls @ 15 mls/hr IV .[id number] PRN PRN Reason: Saline Flush Sodium Chloride () 250 mls @ 15 mls/hr IV .[id number] PRN PRN Reason: Additional IVPB Infusion Ketorolac Tromethamine (Ketorolac 30 Mg/Ml Syringe) 30 mg IV Q6 [facility] Stop: 10/02/20 00:01 Last Admin: 10/01/20 05:08 Dose: 30 mg Documented by: Magnesium Chloride (Magnesium Chloride 64 Mg Delay Rel.Tablet) 128 mg PO DAILY PRN PRN PRN Reason: Constipation Metoprolol Succinate (Metoprolol(Xl)Succ 50 Mg Tablet) 50 mg PO DAILY [facility] Multivitamins (Multivitamins,Therapeutic Tablet) 1 tablet PO DAILYCM [facility] Nutritional Formula (Lactose Free) (Ensure Enlive 120 Ml Liquid) 120 ml PO TIDCM [facility] Ondansetron HCl (Ondansetron Odt 4 Mg Tablet) 4 mg PO Q6H PRN PRN PRN Reason: NAUSEA Last Admin: 09/30/20 21:56 Dose: 4 mg Documented by: Oxycodone HCl (Oxycodone 5 Mg Tablet) 5 - 10 mg PO Q4H PRN PRN PRN Reason: Pain Score 1-10 Last Admin: 09/30/20 21:56 Dose: 5 mg Documented by: Pantoprazole Sodium (Pantoprazole Sodium 40 Mg Tablet) 40 mg PO DAILY [facility] Last Admin: 10/01/20 05:39 Dose: Not Given Documented by: Sodium Chloride (0.9% Saline Lock 10 Ml Syringe) 10 - 40 ml IV UD PRN PRN Reason: SALINE FLUSH Last Admin: 09/30/20 23:16 Dose: 10 ml Documented by: Medical Necessity - Tobacco Use Smoking Status: Former smoker Tobacco Use: Non-smoker Assessment/Plan All Active Problems (Last Reviewed 09/15/20 @ 11:16 by Jesika Singh) Abnormal uterine bleeding (Acute) Acid reflux (Acute) Anemia (Acute) GI bleed (Acute) History of migraine headaches (Acute) History of gastroesophageal reflux (GERD) (Acute) 40-year-old female postop day 1 status post robotic assisted total laparoscopic hysterectomy, bilateral salpingectomy, cystoscopy Postop state -Patient doing well. -Pain controlled without opioid medications. -Incisions clean dry and intact. -Postop hemoglobin stable. -Vital signs stable. -Urine output adequate. -Ambulating without difficulty. Curry catheter remains in place and we remove this morning. -Anticipate discharge to home later this morning
[2020-10-01 08:54] VITALS: BP 117/47; PULSE 76; RESP 16; TEMP 36.8; O2SAT 96
[2020-10-01 08:56] VITALS: PULSE 76; O2SAT 96
[2020-10-01 09:17] VITALS: PULSE 76
[2020-10-01] MEDS: buPROPion (XL) 150 MG TABLET.XL 300 MG PO (09:17)
[2020-10-01] MEDS: Metoprolol(XL)Succ 50 MG Tablet PO (09:17)
[2020-10-01] MEDS: Docusate Sodium 100 MG Capsule PO (09:17)
[2020-10-01] MEDS: Multivitamins,Therapeutic Tablet 1 TABLET PO (09:17)
[2020-10-01] MEDS: Enoxaparin 40 MG/0.4 ML Syringe SC (09:18)
--- NOTE | 2020-10-01 10:19 | PHA.DC.MC ---
Pharmacy Service has performed discharge medication reconciliation and counseling for this patient. 1. IBUPROFEN 800MG PO Q8H PRN PAIN 1-5 2. TRAMADOL 50MG PO Q6H PRN PAIN 6-10 The patient's discharge medication list was reviewed for discrepancies and discrepancies were resolved. Home Medications Esomeprazole Mag Trihydrate [Nexium] 40 mg PO DAILY 11/15/18 bupropion HCl 150 mg 24 hr tablet, extended release 300 mg PO DAILY tab 08/14/20 cholecalciferol (vitamin D3) 50 mcg (2,000 unit) capsule 50 mcg PO DAILY 08/14/20 metoprolol succinate 25 mg tablet,extended release 24 hr 50 mg PO DAILY tab 08/14/20 multivitamin 1 tab PO DAILY 08/14/20 promethazine 25 mg tablet 12.5 mg PO Q4H PRN PRN tab 08/14/20 Albuterol Aerosols [Ventolin Aerosols] 2.5 mg INHALATION Q6H PRN PRN 09/23/20 Linacolotide [Linzess] 145 mcg PO DAILY PRN 09/23/20 Ibuprofen [Motrin] 800 mg PO Q8H PRN PRN #60 tablet 10/01/20 traMADol [Ultram] 50 mg PO Q6H PRN PRN #5 tablet 10/01/20 The patient was counseled on the following discharge medications and changes in medications for homegoing were reviewed. The Reason for Use, instructions for use, and potential side effects were reviewed for all new medications. The patient's questions regarding all of their medications were answered. The patient was able to verbally demonstrate an understanding of their discharge medications.
--- NOTE | 2020-10-01 10:39 | PCM.DC.AHY ---
Discharge Diet: No Restrictions Discharge Activity: Return to Normal Activity, May Not Drive - while taking narcotic pain medications., May Shower May resume sexual activity in: 6-8 weeks Call your doctor if your incision/area has: Continuous Slow Oozing, Sudden Increased Bleeding, Increased Pain/ Swelling, Increased Redness, Foul Smelling Discharge Call your doctor if you observe: Fever of 101 or Higher, Inability to urinate, Inability to have a bowel movement, Using more than one pad per hour Allergies/Adverse Reactions: Allergies metoclopramide [From Reglan] Allergy (Mild, Verified 09/23/20 12:10) psych codeine Allergy (Verified 09/23/20 12:10) Shortness of breath hydrocodone [From Vicodin] Adverse Reaction (Verified 09/30/20 07:19) Nausea/Vom/Diarrhea hydromorphone [From Dilaudid] Adverse Reaction (Verified 09/30/20 07:19) Nausea/Vom/Diarrhea oxycodone [From Percocet] Adverse Reaction (Verified 09/30/20 07:19) Nausea/Vom/Diarrhea Medications to take at Discharge Esomeprazole Mag Trihydrate [Nexium] 40 mg PO DAILY 11/15/18 bupropion HCl 150 mg 24 hr tablet, extended release 300 mg PO DAILY tab 08/14/20 cholecalciferol (vitamin D3) 50 mcg (2,000 unit) capsule 50 mcg PO DAILY 08/14/20 metoprolol succinate 25 mg tablet,extended release 24 hr 50 mg PO DAILY tab 08/14/20 multivitamin 1 tab PO DAILY 08/14/20 promethazine 25 mg tablet 12.5 mg PO Q4H PRN PRN tab 08/14/20 Albuterol Aerosols [Ventolin Aerosols] 2.5 mg INHALATION Q6H PRN PRN 09/23/20 Linacolotide [Linzess] 145 mcg PO DAILY PRN 09/23/20 Ibuprofen [Motrin] 800 mg PO Q8H PRN PRN #60 tablet 10/01/20 traMADol [Ultram] 50 mg PO Q6H PRN PRN #5 tablet 10/01/20 The following prescriptions were given: Ibuprofen [Motrin] 800 mg PO Q8H PRN PRN #60 tablet PRN Reason: Pain Score 1-5 Transmission Status: Received by [facility] traMADol [Ultram] 50 mg PO Q6H PRN PRN #5 tablet PRN Reason: Pain Score 6-10 Transmission Status: Received by [facility] Primary Care Physician: BOB HUANG [Other] Test Results: Test results from this visit will be discussed in further detail at your follow-up appointment, if applicable.
[2020-10-01 12:31] VITALS: BP 113/42; PULSE 92; RESP 16; TEMP 36.9; O2SAT 100
== END 2020-10-01 15:29 | disposition home or self-care (01) ==
LOC: SDC 06:19 → AC 06:20 → MS3 14:15
PROVIDERS: Anesthesiology; Referring Provider Obstetrics & Gynecology; Visit Provider Obstetrics & Gynecology
PROC: 0UT94ZZ Resection of Uterus, Percutaneous Endoscopic Approach (ICD-10-PCS; CPT 58571; principal; 2020-09-30 08:15)
DX: D26.1 Other benign neoplasm of corpus uteri (principal); N93.9 Abnormal uterine and vaginal bleeding, unspecified; K21.9 Gastro-esophageal reflux disease without esophagitis; F41.9 Anxiety disorder, unspecified; J45.909 Unspecified asthma, uncomplicated; Z79.899 Other long term (current) drug therapy; Z20.828 Contact with and (suspected) exposure to other viral communicable diseases; Z87.891 Personal history of nicotine dependence; N87.0 Mild cervical dysplasia
CPT/HCPCS: 00940; 58571; S2900; 36415; 81025; 82947; 82962; 83735; 85027; 86850; 86900; 86901; 87426; 88307; 99251; C9803; J7120; A4216; G0463; J2405

== ENCOUNTER → 2020-10-02 13:54 | Outpatient (CLI) | payer OTHER, SELFPAY ==
--- NOTE | 2020-10-02 13:56 | CT_ITS ---
STUDY: CT ABDOMEN AND PELVIS WITH CONTRAST REASON FOR EXAM: Female, 40 years old. Post op pain. 48 hours status post hysterectomy. Burning pain in the lower abdomen following surgery. RADIATION DOSAGE (If Supplied By Facility): CTDIvol = ( 34.72 ) mGy, DLP = ( 2292.73 ) mGycm TECHNIQUE: Transaxial images were obtained from the dome of the diaphragm to the symphysis pubis without oral contrast. IV 100mL Isovue-370 was administered. Sagittal and coronal images were reconstructed. Individualized dose optimization techniques were used for this CT. COMPARISON: None. FINDINGS: The visualized lung bases are unremarkable. The visualized portions of the heart are within normal limits. Small amount of free intraperitoneal air and keeping with the recent intra-abdominal surgery. There is decreased attenuation of the liver consistent with steatosis. There is a 4.2 cm x 2.8 cm hypodense nodule in the peripheral inferior aspect of the right lobe of the liver with Noble wall type of enhancement peripherally suggestive of an hemangioma. There are surgical clips in the gallbladder fossa consistent with a prior cholecystectomy. Normal spleen. Normal pancreas. Normal bilateral adrenal glands. Normal right kidney. Normal left kidney. Normal visualized stomach. Normal small intestine. Normal colon. The appendix is visualized and appears normal. Normal abdominal aorta. Normal inferior vena cava. Normal retroperitoneum. An air-fluid level is seen within the bladder most likely secondary to recent LIN catheter placement. There is evidence of a 3.1 cm x 2.6 cm cyst in the left ovary. Postoperative changes are seen in the lower deep anterior abdominal wall with evidence of air within the subcutaneous tissues. This is in keeping with the recent surgery. No focal fluid collection or abscess is seen. Normal osseous structures. CT/Abdomen/Pelvis WITH Contrast IMPRESSION: Small amount of free intraperitoneal air and compared with recent intra-abdominal surgery. Postoperative changes seen in the deep subcutaneous tissues overlying the lower anterior abdominal and pelvic wall as described. Small amount of air is seen within the urinary bladder most likely secondary to recent LIN catheter placement. 2.6 cm x 3.1 solid left ovarian cyst. Findings suggestive of a 4.2 cm x 2.8 cm hemangioma in the inferior aspect of the right lobe of the liver. Electronically Signed: Marcio Lorenz MD at 14:50 EDT , Service support ,
== END ==
PROVIDERS: Visit Provider Obstetrics & Gynecology
DX: R10.9 Unspecified abdominal pain (principal); G89.18 Other acute postprocedural pain
CPT/HCPCS: 74177; Q9967

== ENCOUNTER → 2020-10-06 14:36 | Outpatient (CLI) | payer OTHER, SELFPAY ==
--- NOTE | 2020-10-06 14:38 | VDLE_ITS ---
Reason For Study: LLE SWELLING RIGHT LEFT CFV is compressible, spontaneous, phasic, GSV is normal. competent and demonstrates normal CFV is compressible, spontaneous, phasic, augmentation. competent, and demonstrates normal Procedure augmentation. This is a venous duplex using B-mode, color FV is compressible, spontaneous, phasic, flow and spectral Doppler. competent and demonstrates normal Exam performed in department. augmentation. A preliminary report was called and/or faxed POP V is compressible, spontaneous, phasic, to Dr. Wills @ [phone]. competent and demonstrates normal augmentation. T/P Trunk is compressible. PTV is compressible. LT PerV is compressible. VL/Venous Duplex US, Unilateral Interpretation Summary There is no evidence of left lower extremity deep vein thrombosis. Patent and c ompressible right common femoral vein Ordering Physician: Sayda Wills Referring Physician: Sayda Wills Performed By: Janet Dodge, RDCS, RVT
== END ==
PROVIDERS: Referring Provider Obstetrics & Gynecology; Visit Provider Obstetrics & Gynecology
DX: R35.0 Frequency of micturition (principal); M79.89 Other specified soft tissue disorders; G89.18 Other acute postprocedural pain
CPT/HCPCS: 87070; 87075; 87077; 87086; 87088; 87186; 87205; 93971

== ENCOUNTER 2020-11-11 18:04 | Emergency (ER) | payer OTHER, SELFPAY ==
[2020-10-14 09:25] VITALS: BMI 46.8
[2020-11-11 18:05] VITALS: BP 160/9; PULSE 93; RESP 24; TEMP 36.4; O2SAT 98; BMI 46.2
--- NOTE | 2020-11-11 18:39 | CT_ITS ---
EXAM: CT ABDOMEN AND PELVIS WITH INTRAVENOUS CONTRAST : 1980 CLINICAL INDICATION: abd pain and sweats post hysterectomy TECHNIQUE: Helically acquired images were obtained of the abdomen and pelvis with intravenous contrast. This CT exam was performed using one or more of the following dose reduction techniques: automated exposure control, adjustment of the mA and/or kV according to patient size, and/or use of iterative reconstruction technique. This report was created using Divshot report generation technology. CONTRAST: IV 100mL Isovue-370 COMPARISON: 10/02/2020 FINDINGS: LOWER THORAX: Unremarkable. Lung bases are clear. No cardiomegaly. No significant pericardial effusion. ABDOMEN: LIVER: There is decreased attenuation in the liver compatible with fatty infiltration. There is a peripherally enhancing low-density lesion in the inferior right lobe the liver compatible with a hemangioma which is stable. GALLBLADDER AND BILE DUCTS: There are surgical clips from a cholecystectomy. There is a small fluid collection in the subcutaneous tissues slightly below the level the umbilicus that measures 3.3 x 2.8 x 3.6 cm. This may represent a subcutaneous seroma or abscess. There are no abnormalities within the abdominal cavity. No intra- or extrahepatic biliary ductal dilation. PANCREAS: Unremarkable. No focal cystic or solid mass. SPLEEN: Unremarkable. Normal size without focal cystic or solid mass. ADRENALS: Unremarkable. No nodules. KIDNEYS AND URETERS: Unremarkable. Normal renal size and position. No hydronephrosis. STOMACH AND BOWEL: Unremarkable. No stomach or bowel distention. No focal inflammatory change. PELVIS: APPENDIX: No evidence of acute appendicitis. BLADDER: Unremarkable. REPRODUCTIVE: Unremarkable as visualized. No mass. ABDOMEN and PELVIS: INTRAPERITONEAL SPACE: Unremarkable. No ascites or other fluid collection. No free air. BONES/JOINTS: Unremarkable. No suspicious lytic or blastic abnormality. SOFT TISSUES: See above. VASCULATURE: Unremarkable. Abdominal aorta is non-dilated. LYMPH NODES: Unremarkable. No enlarged lymph nodes. CT/Abdomen/Pelvis W IV Cont ONLY IMPRESSION: Fluid collection in subcutaneous tissues slightly below the level the umbilicus which may represent a postoperative seroma however an abscess cannot be absolutely excluded. There are no acute abnormalities within the abdomen or pelvis. Individualized dose optimization techniques were used for this CT. at 2040 Reported and signed by: Douglas Rosado MD Electronically Signed: Douglas Rosado MD at 20:39 EDT Tel , Service support ,
--- NOTE | 2020-11-11 18:40 | EDS_ITS ---
HPI HPI - Female History of Present Illness Chief Complaint: Vag Bleeding Informant: patient Pain Pain: Positive for Pelvic Pain Onset: Yesterday Timing: Continuous Quality: Positive for Cramping and Aching Current Severity: Mild Maximum Severity: Mild Bleeding Issue: Positive for Vaginal bleeding Timing: Intermittent Current Severity: Mild Severity: Mild Associated Symptoms Associated Symptoms: Negative for Dysuria and Frequency Test: Positive Narrative Narrative: 40-year-old female status post hysterectomy about 6 weeks ago. Patient states she had a postop infection for which she initially was on Augmentin and the switch to Omnicef and then the Levaquin. Thought she was doing better with the antibiotics and yesterday started getting lower abdominal pelvic cramping intermittent new and old blood vaginal bleeding. And now with sweats. She denies any fever. Prior similar symptoms: No Recent Illness/Hospitalization: Yes [facility] Medical History (Updated 11/11/20 @ 22:[address] Mukesh Mercado MD) Acid reflux Anemia Anxiety Asthma Gastroparesis GI bleed Insomnia Chavez disease Home Medications esomeprazole magnesium 40 mg PO DAILY 11/15/18 [History Last Taken Unknown] bupropion HCl 150 mg 24 hr tablet, extended release 300 mg PO DAILY tablet 08/14/20 [History Last Taken Unknown] cholecalciferol (vitamin D3) 50 mcg (2,000 unit) capsule 50 mcg PO DAILY 08/14/20 [History Last Taken Unknown] metoprolol succinate 25 mg tablet,extended release 24 hr 50 mg PO DAILY tablet 08/14/20 [History Last Taken Unknown] multivitamin 1 tablet PO DAILY 08/14/20 [History Last Taken Unknown] promethazine 25 mg tablet 12.5 mg PO Q4H PRN PRN tablet 08/14/20 [History Last Taken Unknown] albuterol sulfate 2.5 mg INHALATION Q6H PRN PRN 09/23/20 [History Last Taken Unknown] ibuprofen 800 mg PO Q8H PRN PRN #60 tablet 10/01/20 [Rx Last Taken Unknown] cyclobenzaprine 10 mg tablet 10 mg PO TID PRN #15 tablet 10/02/20 [Rx Last Taken Unknown] Allergy/AdvReac Type Severity Reaction Status Date / Time metoclopramide [From Reglan] Allergy Mild psych Verified 11/11/20 18:08 codeine Allergy Shortness Verified 11/11/20 18:08 of breath hydrocodone [From Vicodin] AdvReac Nausea/Vom/ Verified 11/11/20 18:08 Diarrhea hydromorphone [From Dilaudid] AdvReac Nausea/Vom/ Verified 11/11/20 18:08 Diarrhea oxycodone [From Percocet] AdvReac Nausea/Vom/ Verified 11/11/20 18:08 Diarrhea Family History Grandfather Prostate cancer Grandmother Diabetes Other Kidney disease Surgical History H/O bilateral salpingectomy H/O cystoscopy History of esophagogastroduodenoscopy (EGD) History of robot-assisted laparoscopic hysterectomy hysteroscopy ablation S/P cholecystectomy S/P tonsillectomy Social History Smoking Status: Former smoker alcohol intake: never substance use type: does not use caffeine: Yes what type of physical activity do you participate in: none seatbelt use: always do you feel safe at home: Yes additional social history: - Michael ROS ROS ED Review of Systems ROS Unobtainable: Denies due to encephalopathy Constitutional Constitutional ED: Reports sweats; Denies chills or fever(s) Eyes Eyes: Denies change in vision ENT ENT ED: Denies sore throat Cardiovascular Cardiovascular: Denies chest pain Respiratory/Chest Respiratory/Chest: Denies dyspnea Gastrointestinal Gastrointestinal: Reports abdominal pain; Denies nausea or vomiting Genitourinary Genitourinary ED: Denies dysuria or hematuria Musculoskeletal Musculoskeletal: Denies myalgias Integumentary Denies rash Neurologic Neurologic: Denies headache(s) Psychiatric Psychiatric: Denies depression Endocrine Endocrinology: Denies polyuria Hematologic/Lymphatic Hematologic/Lymphatic: Denies easy bruising Allergic/Immunologic Allergic/Immunologic ED: Denies urticaria EXAM Physical Exam Narrative Exam Narrative: Middle-aged female no acute distress. Vital signs stable afebrile. Does not look septic or toxic. HEENT exam unremarkable. Lungs are clear. Heart regular rhythm no murmur. Abdomen obese but soft. Tenderness suprapubic and periumbilical area. No redness. No bruising. No peritoneal signs. Moving all 4 extremities. No edema. Back nontender. Neurologically awake and alert with no focal motor deficits. Const Vital Signs: 11/11/20 18:05 11/11/20 22:22 Temperature 97.5 F L Temperature Source Temporal Pulse Rate 93 Respiratory Rate 24 H 14 Blood Pressure 160/9 H Blood Pressure Mean 59 Pulse Ox 98 Positive well nourished, well developed and obese General Appearance ED: well developed Nutritional Appearance: obese HEENT Reports moist mucous membranes Negative for trauma or tenderness Eyes PERRL Neck no lymphadenopathy, supple and no JVD Chest Wall inspection of chest normal Resp normal respiratory effort and clear to auscultation bilaterally Cardio regular rate, regular rhythm, no murmurs and no JVD GI normal to inspection, nondistended, normoactive bowel sounds and non-distended Auscultation: normoactive bowel sounds Palpation: tender no CVA tenderness Back/Spine no CVA tenderness Extremity normal to inspection and full ROM General Extremety ED: Negative for edema or tenderness General Extremity: Negative for edema Neuro oriented x3 and CN's II-XII intact bilaterally Sensorium / Orientation: alert, oriented to person, oriented to place and oriented to time Psych mental status grossly normal Skin no rashes or lesions noted MDM MDM MDM Narrative Medical decision making narrative: 40-year-old status post hysterectomy about 6 weeks ago. Had a postop infection and it was treated with several different antibiotic courses. [place] like she was improving and then yesterday and today has felt worse with bleeding of old and new blood. Also with sweats. Screening labs and urinalysis to be obtained. CAT scan of the abdomen and pelvis to be obtained to be evaluated for postop infection versus other etiologies. Lab Data Lab results narrative: CBC shows a white count 1.6. Hemoglobin 12. No bands. Electrolytes normal. UA negative. CAT scan of the abdomen pelvis is read by the radiologist really shows no acute abnormality other than a periumbilical subcutaneous either fluid collection such as a seroma or possibly an abscess. I discussed all test results with the patient. On repeat exam at 10:22 PM she is doing well. Resting comfortably. I will discuss all her work-up and evaluation with the [employer]IVER on-call. She has an appointment to see her OB in the morning. Labs: Laboratory Results - last 24 hr 11/11/20 11/11/20 11/11/20 19:00 19:10 19:10 WBC 11.6 H RBC 4.48 Hgb 12.2 Hct 39.0 MCV 87.1 MCH 27.2 MCHC 31.3 L RDW Std Deviation 51.6 H RDW Coeff of [place] 16.0 H Plt Count 349 MPV 9.7 Immature Gran % (Auto) 0.400 Neut % (Auto) 66.4 Lymph % (Auto) 23.4 Ritchie % (Auto) 7.1 Eos % (Auto) 2.2 Baso % (Auto) 0.5 Absolute Neuts (auto) 7.7 Absolute Lymphs (auto) 2.71 Nucleated RBC % 0 Sodium 138 Potassium 4.8 Chloride 107 Carbon Dioxide 27.0 Anion Gap 4 L BUN 13 Creatinine 0.87 Estim Creat Clear Calc 82.75 Est GFR (MDRD) Af Amer 92 Est GFR (MDRD) Non-Af 76 BUN/Creatinine Ratio 15.0 Glucose 90 Calcium 9.2 Urine Color Yellow Urine Clarity Sl. Cloudy Urine pH 5.0 Ur Specific [place] 1.025 Urine Protein Negative Urine Glucose (UA) Normal Urine Ketones Negative Urine Occult Blood 25 H Urine Nitrite Negative Urine Bilirubin Negative Urine Urobilinogen Normal Ur Leukocyte Esterase Negative Urine RBC 0-5 SEEN Urine WBC 0 SEEN Ur Squamous Epith Cells 0-5 SEEN Urine Bacteria RARE Urine Mucus 1+ Radiography Diagnostic Testing: Radiology Impression Abdomen/Pelvis CT 11/11/20 18:39 IMPRESSION: Fluid collection in subcutaneous tissues slightly below the level the umbilicus which may represent a postoperative seroma however an abscess cannot be absolutely excluded. There are no acute abnormalities within the abdomen or pelvis. Individualized dose optimization techniques were used for this CT. at 2040 Reported and signed by: Douglas Rosado MD Electronically Signed: Douglas Rosado MD at 20:39 EDT Tel , Service support , Discharge Plan Triage Chief Complaint: Vag Bleeding ED Provider: Mukesh Mercado Dx/Rx/DC Orders Clinical Impression: Seroma after procedure Instructions: ED Seroma, Postsurgical Prescriptions: No Action multivitamin Tablet 1 tablet PO DAILY RF: 0 cholecalciferol (vitamin D3) 50 mcg (2,000 unit) capsule 50 mcg PO DAILY RF: 0 cyclobenzaprine 10 mg tablet 10 mg PO TID PRN (Reason: muscle spasm) Qty: 15 RF: 0 esomeprazole magnesium 40 MG capsule 40 mg PO DAILY RF: 0 bupropion HCl 150 mg tablet extended release 24 hr 300 mg PO DAILY RF: 0 metoprolol succinate 25 mg tablet extended release 24 hr 50 mg PO DAILY RF: 0 promethazine 25 mg tablet 12.5 mg PO Q4H PRN PRN (Reason: Nausea) RF: 0 albuterol sulfate 2.5 MG/3 ML solution for nebulization 2.5 mg INHALATION Q6H PRN PRN (Reason: Asthma) RF: 0 ibuprofen 800 MG tablet 800 mg PO Q8H PRN PRN (Reason: Pain Score 1-5) Qty: 60 RF: 1 Referrals: [facility] HUANG [Other] Sayda Wills MD [STAFF PHYSICIAN] - Keep Daniel appointment (See your [employer] physician tomorrow with your scheduled appointment. Discussed with them whether they think this is a fluid collection such as a seroma or needs to be further evaluated for possible abscess.) Disposition Disposition: Home, self care
[2020-11-11] MEDS: 0.9% Normal Saline 1,000 ML 999 ML IV (19:08)
[2020-11-11 19:19] LABS: Absolute Lymphocyte Count 2.71 X10^3/uL (0.83-4.51); Absolute Neutrophil Count 7.7 X10^3/uL (2.0-7.7); Basophil# 0.06 X10^3/uL; Basophil% 0.5 % (0-1); Eosinophil# 0.26 X10^3/uL; Eosinophils% 2.2 % (0-5); Hemoglobin 12.2 g/dL (12.0-15.0); Lymphocyte # 2.71 X10^3/ul (0.83-4.51); Lymphocyte % 23.4 % (19-41); Mean Corp Hgb Conc 31.3 g/dL (32-36); Mean Corpuscular Hgb 27.2 pg (27.0-32.0); Mean Corpuscular Volume 87.1 fL (81-99); Mean Platelet Vol. 9.7 fl (6.2-12.0); Monocyte# 0.82 X10^3/uL; Monocyte% 7.1 % (0-10); NRBC Flagged by Analyzer 0 % (0-5); Neutrophil % 66.4 % (47-70); Platelet Count 349 K/mm3 (150-450); RBC Distribution Width SD 51.6 fl (35.1-43.9); Red Blood Count 4.48 M/mm3 (4.2-5.4); White Blood Count 11.6 K/mm3 (4.4-11.0)
[2020-11-11 19:22] LABS: Color, Urine Yellow (Yellow); Glucose, Dipstick Normal (Normal); Ketone-Dipstick Negative (Negative); Leukocyte Esterase-Dipstick Negative /ul (Negative); Nitrite-Dipstick Negative (Negative); Occult Blood-Urine 25 /ul (Negative); Protein-Dipstick Negative (Negative); Specific Gravity, Urine 1.025 (1.002-1.030); Urine Bilirubin Dipstick Negative (Negative); Urine Clarity Sl. Cloudy (Clear); Urine Urobilinogen Normal (Normal)
[2020-11-11 19:33] LABS: Anion Gap 4 (5-15); BUN 13 mg/dL (7-18); Calcium,Total 9.2 mg/dL (8.5-10.1); Chloride 107 mmol/L (98-107); Creatinine, Serum 0.87 mg/dL (0.55-1.02); EST Glomerular Filtration Rate 76 mL/min (>60); Est Glom Filt Rate - Afr Amer 92 mL/min (>60); Estimated Creatinine Clearance 82.75 ml/min; Glucose 90 mg/dL (74-106); Potassium 4.8 mmol/L (3.5-5.1); Sodium Level 138 mmol/L (136-145)
[2020-11-11 19:33] LABS: Bacteria RARE /hpf (None Seen); Mucous, Urine 1+ /hpf (<or=2+); Red Blood Cells-Urine 0-5 SEEN /hpf (0-5); Squamous Epithelial Cells - UA 0-5 SEEN /hpf (5-10); White Blood Cells 0 SEEN /hpf (0-5)
[2020-11-11 22:22] VITALS: RESP 14
[2020-11-11] MEDS: Cephalexin 250 MG Capsule 500 MG PO (22:51)
[2020-11-11 22:55] VITALS: BP 150/68; PULSE 75; RESP 12; O2SAT 95
== END 2020-11-11 22:57 | disposition home or self-care (01) ==
PROVIDERS: Emergency Provider Emergency Medicine
DX: L76.34 Postprocedural seroma of skin and subcutaneous tissue following other procedure (principal); K21.9 Gastro-esophageal reflux disease without esophagitis; J45.909 Unspecified asthma, uncomplicated; Z90.710 Acquired absence of both cervix and uterus; Z87.891 Personal history of nicotine dependence; Z79.899 Other long term (current) drug therapy
CPT/HCPCS: 74177; 80048; 81001; 85025; 96360; 96361; 99284; J7030; Q9967; A4216

== ENCOUNTER → 2020-11-12 11:32 | Outpatient (CLI) | payer OTHER, SELFPAY ==
[2020-11-12 09:54] VITALS: BMI 46.6
== END ==
PROVIDERS: Referring Provider Obstetrics & Gynecology; Visit Provider Obstetrics & Gynecology
DX: L02.211 Cutaneous abscess of abdominal wall (principal)

== ENCOUNTER 2020-11-12 12:00 | Emergency (ER) | payer OTHER, SELFPAY ==
[2020-11-12] VITALS (7 sets, daily range): BP systolic 92–129; BP diastolic 50–91; PULSE 68–92; RESP 11–17; TEMP 36; O2SAT 96–99; BMI 46.6; BMI 46.5
--- NOTE | 2020-11-12 12:27 | CT_ITS ---
PROCEDURE: CT DIRECTED ABSCESS DRAINAGE, PERITONEAL DATE OF EXAMINATION: 11/12/2020. INDICATION: Female, 40 years old. Postoperative fluid/abscess collection in the subcutaneous umbilical region. PHYSICIAN: Marcio Lorenz M.D. CONSENT: Written informed consent was obtained having explained the risks, benefits and alternatives in detail with the patient who accepted the risks and agreed to proceed. Laboratory review and clinical assessment was performed. CONSCIOUS SEDATION PROTOCOL: The Drugs used were: 1 mg Versed, IV., and 25 mcg Fentanyl, IV. The sedation time was: 14 minutes. Conscious sedation was started at 1:15 PM and estimated at 1:29 PM. The conscious sedation protocol was independently monitored by the department nurse. RADIATION DOSAGE (If Supplied By Facility): CTDIvol = ( 18 ) mGy, DLP = ( 491.5. ) mGycm. Individualized dose optimization techniques were utilized. TECHNIQUE: CT sections were made through the abdomen and pelvis revealing an abscess in the subcutaneous umbilical region.. The skin surface was prepped and draped in a sterile fashion. Puncture of this collection was performed with a 18-gauge Chiba needle and serosanguineous fluid was aspirated. Additional fluid was aspirated for a total of approximately 20 cc of serosanguineous fluid. The specimen was sent to the laboratory for analysis. The patient tolerated the procedure well. CT/CT Guidance Abscess Drg w/Cath IMPRESSION: 1. CT directed drainage of a small fluid collection deep to the umbilicus using CT image guidance and image documentation as described. 2. Conscious Sedation protocol utilized with independent monitoring Electronically Signed: Marcio Lorenz MD at 14:00 EDT , Service support ,
[2020-11-12] MEDS: fentaNYL 100 MCG/2 ML Ampul IV (13:10)
[2020-11-12] MEDS: Midazolam 2 MG/2 ML Syringe IV (13:15)
--- NOTE | 2020-11-12 13:53 | NURSING ---
report given to ER doctor and nurse pt stable on return
--- NOTE | 2020-11-12 14:07 | EX.ED.DYSGE1 ---
HPI History of Present Illness Chief Complaint: Abscess Narrative Narrative: Patient presenting for evaluation secondary to a subcutaneous abscess that has been refractory to treatment with antibiotics. Patient has a underlying history of a recent hysterectomy that is been complicated by a infectious seroma that she has been on 2 courses of antibiotics for already. She is currently suffering from a recurrence. She is having increased pain over the site with some redness. Patient's HOT MILL WORKER who performed the procedure was concerned that potentially she has an abscess so she did get imaging which showed a fluid collection that is likely infectious. Patient is presenting with concerns of that fluid collection and potentially requiring CT-guided drainage. Patient denies constitutional symptoms such as fever. Review of systems otherwise negative. [facility] Medical History (Updated 11/12/20 @ 14:[address] Antwon Macdonald MD) Acid reflux Anemia Anxiety Asthma Gastroparesis GI bleed Insomnia Chavez disease Home Medications esomeprazole magnesium 40 mg PO DAILY 11/15/18 [History Last Taken Unknown] bupropion HCl 150 mg 24 hr tablet, extended release 300 mg PO DAILY tablet 08/14/20 [History Last Taken Unknown] cholecalciferol (vitamin D3) 50 mcg (2,000 unit) capsule 50 mcg PO DAILY 08/14/20 [History Last Taken Unknown] metoprolol succinate 25 mg tablet,extended release 24 hr 50 mg PO DAILY tablet 08/14/20 [History Last Taken Unknown] multivitamin 1 tablet PO DAILY 08/14/20 [History Last Taken Unknown] promethazine 25 mg tablet 12.5 mg PO Q4H PRN PRN tablet 08/14/20 [History Last Taken Unknown] albuterol sulfate 2.5 mg INHALATION Q6H PRN PRN 09/23/20 [History Last Taken Unknown] ibuprofen 800 mg PO Q8H PRN PRN #60 tablet 10/01/20 [Rx Last Taken Unknown] cyclobenzaprine 10 mg tablet 10 mg PO TID PRN #15 tablet 10/02/20 [Rx Last Taken Unknown] levofloxacin 750 mg tablet 750 mg PO DAILY 14 Days #14 tab 11/12/20 [Rx Last Taken Unknown] Allergy/AdvReac Type Severity Reaction Status Date / Time metoclopramide [From Reglan] Allergy Mild psych Verified 11/12/20 12:02 codeine Allergy Shortness Verified 11/12/20 12:02 of breath hydrocodone [From Vicodin] AdvReac Nausea/Vom/ Verified 11/12/20 12:02 Diarrhea hydromorphone [From Dilaudid] AdvReac Nausea/Vom/ Verified 11/12/20 12:02 Diarrhea oxycodone [From Percocet] AdvReac Nausea/Vom/ Verified 11/12/20 12:02 Diarrhea Family History Grandfather Prostate cancer Grandmother Diabetes Other Kidney disease Surgical History H/O bilateral salpingectomy H/O cystoscopy History of esophagogastroduodenoscopy (EGD) History of robot-assisted laparoscopic hysterectomy hysteroscopy ablation S/P cholecystectomy S/P tonsillectomy Social History Smoking Status: Former smoker alcohol intake: never substance use type: does not use caffeine: Yes what type of physical activity do you participate in: none seatbelt use: always do you feel safe at home: Yes additional social history: - Michael KAM ROS ED Constitutional Constitutional ED: Denies fever(s) Respiratory/Chest Respiratory/Chest: Denies dyspnea Gastrointestinal Gastrointestinal: Reports other Details: Abdominal wall pain ; Denies nausea or vomiting Musculoskeletal Musculoskeletal: Denies myalgias Integumentary Reports abscess and rash Endocrine Endocrinology: Denies polydipsia or polyuria EXAM Physical Exam Const Vital Signs: 11/12/20 12:02 11/12/20 13:15 11/12/20 13:30 Temperature 96.8 F L Temperature Source Temporal Pulse Rate 75 80 Pulse Rate [1 (Initial Baseline)] 86 Pulse Rate [2] 92 Pulse Rate [3] 87 Respiratory Rate 14 13 Respiratory Rate [1 (Initial Baseline)] 11 L Respiratory Rate [2] 17 Respiratory Rate [3] 13 Blood Pressure 129/91 H 115/50 L Blood Pressure [1 (Initial Baseline)] 98/51 L Blood Pressure [2] 94/64 Blood Pressure [3] 98/63 Blood Pressure Mean 103 71 Blood Pressure Source Monitor Blood Pressure Position Supine Blood Pressure Location Right Arm Pulse Ox 97 98 Oxygen Delivery Method Room Air Room Air Oxygen Delivery Method [1 (Initial Baseline)] Room Air Oxygen Delivery Method [2] Room Air Oxygen Delivery Method [3] Room Air Oxygen Flow Rate (L/min) [1 (Initial Baseline)] 95 Oxygen Flow Rate (L/min) [2] 97 11/12/20 13:35 11/12/20 13:40 11/12/20 13:44 Temperature Temperature Source Pulse Rate 80 79 68 Pulse Rate [1 (Initial Baseline)] Pulse Rate [2] Pulse Rate [3] Respiratory Rate 15 17 12 Respiratory Rate [1 (Initial Baseline)] Respiratory Rate [2] Respiratory Rate [3] Blood Pressure 116/58 L 100/61 92/58 L Blood Pressure [1 (Initial Baseline)] Blood Pressure [2] Blood Pressure [3] Blood Pressure Mean 77 74 69 Blood Pressure Source Monitor Monitor Monitor Blood Pressure Position Semi-Fowlers Semi-Fowlers Semi-Fowlers Blood Pressure Location Right Arm Right Arm Right Arm Pulse Ox 98 98 99 Oxygen Delivery Method Room Air Room Air Room Air Oxygen Delivery Method [1 (Initial Baseline)] Oxygen Delivery Method [2] Oxygen Delivery Method [3] Oxygen Flow Rate (L/min) [1 (Initial Baseline)] Oxygen Flow Rate (L/min) [2] Positive well nourished and well developed General Appearance ED: well developed HEENT Negative for trauma Eyes EOMs intact bilaterally Neck supple Resp normal respiratory effort Cardio regular rate GI GI Narrative: Abdominal exam shows tenderness infraumbilically with some induration very mild skin changes overlying. No evidence of abdominal rigidity or surgical abdomen. Extremity normal to inspection Neuro oriented x3 Sensorium / Orientation: alert MDM MDM MDM Narrative Medical decision making narrative: Patient presented secondary to a refractory infectious fluid collection postoperatively. I discussed with the patient's HOT MILL WORKER as well as radiology and we were able to have this drained via CT guidance. Fluid was sent for infectious labs. Patient will be discharged with outpatient follow-up with HOT MILL WORKER. Radiography Diagnostic Testing: Radiology Impression Abscess Drainage CT 11/12/20 12:27 IMPRESSION: 1. CT directed drainage of a small fluid collection deep to the umbilicus using CT image guidance and image documentation as described. 2. Conscious Sedation protocol utilized with independent monitoring Electronically Signed: Marcio Lorenz MD at 14:00 EDT , Service support , Discharge Plan Triage Chief Complaint: Abscess ED Provider: Antwon Macdnoald Dx/Rx/DC Orders Clinical Impression: Postoperative seroma Instructions: ED Seroma, Postsurgical Prescriptions: No Action multivitamin Tablet 1 tablet PO DAILY RF: 0 cholecalciferol (vitamin D3) 50 mcg (2,000 unit) capsule 50 mcg PO DAILY RF: 0 levofloxacin 750 mg tablet 750 mg PO DAILY 14 Days Qty: 14 RF: 0 cyclobenzaprine 10 mg tablet 10 mg PO TID PRN (Reason: muscle spasm) Qty: 15 RF: 0 esomeprazole magnesium 40 MG capsule 40 mg PO DAILY RF: 0 bupropion HCl 150 mg tablet extended release 24 hr 300 mg PO DAILY RF: 0 metoprolol succinate 25 mg tablet extended release 24 hr 50 mg PO DAILY RF: 0 promethazine 25 mg tablet 12.5 mg PO Q4H PRN PRN (Reason: Nausea) RF: 0 albuterol sulfate 2.5 MG/3 ML solution for nebulization 2.5 mg INHALATION Q6H PRN PRN (Reason: Asthma) RF: 0 ibuprofen 800 MG tablet 800 mg PO Q8H PRN PRN (Reason: Pain Score 1-5) Qty: 60 RF: 1 Referrals: [facility] [Other] Sayda Wills MD [STAFF PHYSICIAN] - (As scheduled) Disposition Disposition: Home, self care
== END 2020-11-12 14:45 | disposition home or self-care (01) ==
PROVIDERS: Emergency Provider Emergency Medicine
DX: L76.34 Postprocedural seroma of skin and subcutaneous tissue following other procedure (principal); J45.909 Unspecified asthma, uncomplicated; K21.9 Gastro-esophageal reflux disease without esophagitis; F41.9 Anxiety disorder, unspecified; Z87.891 Personal history of nicotine dependence; Z79.899 Other long term (current) drug therapy
CPT/HCPCS: 49406; 75989; 87070; 87075; 87205; 96374; 96375; 99284; J7040; A4216

== ENCOUNTER → 2024-02-15 | Outpatient (CLI) | payer OTHER, SELFPAY | END | disposition home or self-care (01) | PROVIDERS: Referring Provider Nurse Practitioner Family; Visit Provider Nurse Practitioner Family | DX: R30.0 Dysuria (principal); N89.8 Other specified noninflammatory disorders of vagina | CPT/HCPCS: 87070; 87086; 87205 ==

== ENCOUNTER → 2024-02-21 | Outpatient (CLI) | payer OTHER, SELFPAY ==
--- NOTE | 2024-02-21 13:57 | US_ITS ---
EXAM: US PELVIS TRANSABDOMINAL AND TRANSVAGINAL, COMPLETE CLINICAL INDICATION: ovarian cyst seen on ct in June, outside facility TECHNIQUE: Transabdominal and transvaginal pelvic ultrasound was performed with grayscale and color Doppler imaging. Transvaginal imaging was used for better evaluation of the endometrium and adnexa. COMPARISON: No relevant prior studies available. FINDINGS: UTERUS/CERVIX: Patient status post hysterectomy. RIGHT OVARY: The right ovary is not visualized. LEFT OVARY: Left ovary is not visualized. FREE FLUID: None. BLADDER: The bladder measures 11.6 x 9.8 x 9.9 cm for volume of 586 mL. US/Pelvic w/ Transvaginal IMPRESSION: Status post hysterectomy. Neither ovary was visualized. There is no mass or fluid collection. Electronically Signed: Douglas Rosado MD at 0:03 EDT ,
== END | disposition home or self-care (01) ==
PROVIDERS: Referring Provider Nurse Practitioner Family; Visit Provider Nurse Practitioner Family
DX: N83.209 Unspecified ovarian cyst, unspecified side (principal)
CPT/HCPCS: 76830; 76856

== ENCOUNTER → 2024-03-02 | Outpatient (CLI) | payer OTHER, SELFPAY | END | disposition home or self-care (01) | PROVIDERS: Referring Provider Obstetrics & Gynecology; Visit Provider Obstetrics & Gynecology | DX: N39.0 Urinary tract infection, site not specified (principal); B37.31 Acute candidiasis of vulva and vagina | CPT/HCPCS: 87070; 87077; 87205 ==

== ENCOUNTER 2024-03-13 09:52 | Emergency (ER) | payer OTHER, SELFPAY ==
[2024-03-13] VITALS (8 sets, daily range): BP systolic 125–153; BP diastolic 74–109; PULSE 71–90; RESP 16–18; TEMP 35.7–36.5; O2SAT 97–100; BMI 46.0
--- NOTE | 2024-03-13 10:16 | ED.VIS.FEGU ---
HPI HPI - Female History of Present Illness Chief Complaint: Female C/O Detail of Chief Complaint: Yeast infection and not feeling well Informant: patient Narrative Narrative: Patient presents to the emergency department with complaint of a ongoing vaginal yeast infection that has been ongoing for over a month. She has had treatment with fluconazole and triaconazole. Currently on boric acid suppositories. Patient states that she had some abscesses on her abdominal wall that needed resected and had been on multiple antibiotics prior to that. A culture of the yeast was sent off and it is [place] resistant. Patient complaining of sweats at night. She complains of lower abdomen and pelvic pain. She has history of UTI. Patient also now complaining of tongue and mouth and esophagus pain. She denies fevers. [facility] Medical History (Updated 03/13/24 @ 14:[address] Baldev Saucedo, ) Insomnia Asthma Anxiety Acid reflux Chavez disease Anemia GI bleed Gastroparesis Home Medications ?Medication ?Instructions ?Recorded ?Last Taken ?Type esomeprazole magnesium 40 mg 40 mg PO DAILY 11/15/18 Unknown History capsule,delayed release bupropion HCl 150 mg 24 hr tablet, 300 mg PO DAILY 08/14/20 Unknown History extended release metoprolol succinate 25 mg 50 mg PO DAILY 08/14/20 Unknown History tablet,extended release 24 hr promethazine 25 mg tablet 12.5 mg PO Q4H PRN PRN Nausea 08/14/20 Unknown History fluconazole 200 mg tablet 200 mg PO DAILY #7 tabs 03/13/24 Unknown Rx Allergy/AdvReac Type Severity Reaction Status Date / Time nitrofurantoin (From Allergy Severe throat Verified 03/13/24 09:55 Macrobid) closing Sulfa (Sulfonamide Allergy Severe throat Verified 03/13/24 09:55 Antibiotics) closing metoclopramide (From Reglan) Allergy Mild psych Verified 03/13/24 09:55 codeine Allergy Shortness Verified 03/13/24 09:55 of breath hydrocodone (From Vicodin) AdvReac Nausea/Vom/ Verified 03/13/24 09:55 Diarrhea hydromorphone (From Dilaudid) AdvReac Nausea/Vom/ Verified 03/13/24 09:55 Diarrhea oxycodone (From Percocet) AdvReac Nausea/Vom/ Verified 03/13/24 09:55 Diarrhea Family History Grandfather Prostate cancer Grandmother Diabetes Other Kidney disease Surgical History (Updated 03/13/24 @ 10:04 by Kvng Zuniga) H/O removal of cyst H/O cystoscopy H/O bilateral salpingectomy History of robot-assisted laparoscopic hysterectomy History of esophagogastroduodenoscopy (EGD) hysteroscopy ablation S/P tonsillectomy S/P cholecystectomy Social History Smoking Status: Former smoker alcohol intake: never substance use type: does not use caffeine: Yes what type of physical activity do you participate in: walking seatbelt use: always do you feel safe at home: Yes additional social history: - Michael ROS ROS ED Review of Systems ROS Unobtainable: other Constitutional Constitutional ED: Reports lethargy and sweats; Denies chills, fever(s) or weight loss Eyes Eyes: Denies blurry vision, change in vision or diplopia ENT ENT ED: Reports sore throat; Denies rhinorrhea Cardiovascular Cardiovascular: Denies chest pain, orthopnea or racing heartbeat Respiratory/Chest Respiratory/Chest: Reports dyspnea and dyspnea on exertion; Denies cough, orthopnea or sputum Gastrointestinal Gastrointestinal: Reports abdominal pain; Denies diarrhea, nausea or vomiting Genitourinary Genitourinary ED: Denies dysuria, hematuria or urinary frequency Musculoskeletal Musculoskeletal: Denies arthralgias, back pain, myalgias or neck pain Integumentary Denies abscess, Abrasions or rash Neurologic Neurologic: Denies headache(s) or weakness Psychiatric Psychiatric: Denies anxiety, depression or suicidal thoughts Endocrine Endocrinology: Denies polydipsia, polyphagia or polyuria Hematologic/Lymphatic Hematologic/Lymphatic: Denies easy bleeding, easy bruising or lymphadenopathy Allergic/Immunologic Allergic/Immunologic ED: Denies mouth swelling, tongue swelling or urticaria EXAM Physical Exam Const Vital Signs: 03/13/24 09:53 03/13/24 10:01 03/13/24 10:11 Temperature 96.3 F L 96.3 F L Temperature Source Temporal Temporal Pulse Rate 90 90 Respiratory Rate 16 16 Respiratory Effort Normal Non-Labored Respiratory Pattern Normal Blood Pressure 153/94 H 153/94 H Blood Pressure Mean 113 113 Pulse Ox 99 99 Oxygen Delivery Method Room Air Room Air 03/13/24 11:52 03/13/24 13:00 Temperature Temperature Source Pulse Rate 86 71 Respiratory Rate 18 18 Respiratory Effort Respiratory Pattern Blood Pressure 146/88 H 131/76 H Blood Pressure Mean 107 94 Pulse Ox 99 98 Oxygen Delivery Method Room Air Positive well nourished and well developed General Appearance ED: well developed and NAD HEENT Reports TM's clear and moist mucous membranes normocephalic and atraumatic; Negative for trauma or tenderness Tympanic Membrane ED: Yes TM's clear Eyes PERRL and EOMs intact bilaterally General Eye ED: Negative for pale conjunctiva or scleral icterus Neck no lymphadenopathy, supple and no JVD General: Negative for tenderness Chest Wall inspection of chest normal and palpation of chest normal Chest: Negative for tenderness Resp normal respiratory effort and clear to auscultation bilaterally Effort and Inspection: Negative for respiratory distress or pain with movement Auscultation: Negative for rhonchi, wheezes or diminished lung sounds Cardio regular rate, regular rhythm, S1 normal heart sound, S2 normal heart sound and no murmurs Peripheral Pulses: pulses 2+ throughout GI normal to inspection, nondistended, normoactive bowel sounds, soft to palpation, non-tender, non-distended and no masses Back/Spine no CVA tenderness and no thoracic nor lumbar tenderness Extremity normal to inspection General Extremety ED: Negative for edema General Extremity: Negative for edema Neuro oriented x3, CN's II-XII intact bilaterally, no sensory deficits noted and gait normal Sensorium / Orientation: awake, alert, oriented to person, oriented to place and oriented to time Motor Exam: strength 5/5 throughout and strength abnormal Psych mental status grossly normal Skin no rashes or lesions noted and no wounds MDM MDM MDM Narrative Medical decision making narrative: Patient presents with prolonged history of yeast infection with non-Madeleine albicans infection. No sensitivities available on culture that was sent. Patient had been treated with fluconazole and terconazole and currently taking boric acid suppositories. IV line established. CBC with differential obtained showed awake and of 8.3 with hemoglobin 13.3 and platelet count of 376. Chemistries unremarkable. LFTs were normal Lab Data Attestation: I reviewed the patient's lab results. Labs: Laboratory Results - last 24 hr 03/13/24 03/13/24 10:23 11:11 WBC 8.3 RBC 4.60 Hgb 13.3 Hct 41.0 MCV 89.1 MCH 28.9 MCHC 32.4 RDW Std Deviation 40.9 RDW Coeff of [place] 12.6 Plt Count 376 MPV 9.4 Immature Gran % (Auto) 0.600 Neut % (Auto) 65.5 Lymph % (Auto) 24.4 [place] % (Auto) 7.7 Eos % (Auto) 1.1 Baso % (Auto) 0.7 Absolute Neuts (auto) 5.5 Absolute Lymphs (auto) 2.03 Nucleated RBC % 0 Sodium 139 Potassium 3.4 L Chloride 105 Carbon Dioxide 31.0 Anion Gap 3 L BUN 9 Creatinine 0.82 Estim Creat Clear Calc 124.71 Est GFR (MDRD) Af Amer 96 Est GFR (MDRD) Non-Af 80 BUN/Creatinine Ratio 10.9 Glucose 107 H Lactic Acid 1.1 Calcium 9.8 Total Bilirubin 0.70 AST 14 L ALT 24 Alkaline Phosphatase 68 Total Protein 7.1 Albumin 3.5 Globulin 3.6 Albumin/Globulin Ratio 1.0 Urine Color Yellow Urine Clarity Clear Urine pH 6.5 Ur Specific [place] 1.015 Urine Protein Negative Urine Glucose (UA) Normal Urine Ketones Negative Urine Occult Blood 50 H Urine Nitrite Negative Urine Bilirubin Negative Urine Urobilinogen Normal Ur Leukocyte Esterase Negative Urine RBC 10-25 SEEN Urine WBC 0-5 SEEN Ur Squamous Epith Cells 5-10 SEEN Urine Bacteria 1+ Urine Mucus 1+ Radiography Diagnostic Testing: Clinical Impression(s) from Imaging Studies Abdomen/Pelvis CT 03/13/24 11:56 IMPRESSION: No acute abnormality identified. Hepatic steatosis with hepatomegaly. Electronically Signed: Rosy Aguilar MD at 13:15 EDT , Discharge Plan Triage Chief Complaint: Female C/O Other Complaint: Weakness ED Provider: Baldev Saucedo Dx/Rx/DC Orders Clinical Impression: Yeast infection Instructions: Candidiasis Vaginal Prescriptions: New fluconazole 200 mg tablet 200 mg PO DAILY Qty: 7 0RF No Action esomeprazole magnesium 40 MG capsule 40 mg PO DAILY bupropion HCl 150 mg tablet extended release 24 hr 300 mg PO DAILY metoprolol succinate 25 mg tablet extended release 24 hr 50 mg PO DAILY promethazine 25 mg tablet 12.5 mg PO Q4H PRN PRN (Reason: Nausea) Primary Care Provider: AMARI DOE Referrals: Sana Coronel DO [Med Staff - Active Staff] - 3-5 Days Dl Castillo MD [Med Staff - Active Staff] - As Needed Care Physician,No Primary [Non-Staff] - Print Language: Kyrgyz Disposition Disposition: Home, Self Care
[2024-03-13 10:35] LABS: Absolute Lymphocyte Count 2.03 X10^3/uL (0.83-4.51); Absolute Neutrophil Count 5.5 X10^3/uL (2.0-7.7); Basophil# 0.06 X10^3/uL; Basophil% 0.7 % (0-1); Eosinophil# 0.09 X10^3/uL; Eosinophils% 1.1 % (0-5); Hemoglobin 13.3 g/dL (12.0-15.0); Lymphocyte # 2.03 X10^3/ul (0.83-4.51); Lymphocyte % 24.4 % (19-41); Mean Corp Hgb Conc 32.4 g/dL (32-36); Mean Corpuscular Hgb 28.9 pg (27.0-32.0); Mean Corpuscular Volume 89.1 fL (81-99); Mean Platelet Vol. 9.4 fl (6.2-12.0); Monocyte# 0.64 X10^3/uL; Monocyte% 7.7 % (0-10); NRBC Flagged by Analyzer 0 % (0-5); Neutrophil # 5.46 X10^3/uL (2.7-7.7); Neutrophil % 65.5 % (47-70); Platelet Count 376 K/mm3 (150-450); RBC Distribution Width CV 12.6 % (11.6-14.6); RBC Distribution Width SD 40.9 fl (35.1-43.9); White Blood Count 8.3 K/mm3 (4.4-11.0)
[2024-03-13 10:48] LABS: AST(SGOT) 14 U/L (15-37); Alanine Aminotransfer ALT/SGPT 24 U/L (13-56); Albumin, Serum 3.5 g/dL (3.2-5.0); Alkaline Phosphatase 68 U/L (45-117); Anion Gap 3 (5-15); BUN 9 mg/dL (7-18); BUN/Creat Ratio 10.9 RATIO (10-20); Calcium,Total 9.8 mg/dL (8.5-10.1); Chloride 105 mmol/L (98-107); Creatinine, Serum 0.82 mg/dL (0.55-1.02); EST Glomerular Filtration Rate 80 mL/min (>60); Est Glom Filt Rate - Afr Amer 96 mL/min (>60); Estimated Creatinine Clearance 124.71 ml/min; Globulin 3.6 g/dL (2.2-4.2); Glucose 107 mg/dL (74-106); Potassium 3.4 mmol/L (3.5-5.1); Protein, Total 7.1 g/dL (6.4-8.2); Sodium Level 139 mmol/L (136-145)
[2024-03-13 10:59] LABS: Lactic Acid 1.1 mmol/L (0.4-1.9)
[2024-03-13 11:17] LABS: Color, Urine Yellow (Yellow); Glucose, Dipstick Normal (Normal); Ketone-Dipstick Negative (Negative); Leukocyte Esterase-Dipstick Negative /ul (Negative); Nitrite-Dipstick Negative (Negative); Occult Blood-Urine 50 /ul (Negative); Protein-Dipstick Negative (Negative); Specific Gravity, Urine 1.015 (1.002-1.030); Urine Bilirubin Dipstick Negative (Negative); Urine Clarity Clear (Clear); Urine Urobilinogen Normal (Normal); Urine pH 6.5 (5.0 - 8.0)
[2024-03-13 11:26] LABS: Bacteria 1+ /hpf (None Seen); Mucous, Urine 1+ /hpf (<or=2+); Red Blood Cells-Urine 10-25 SEEN /hpf (0-5); Squamous Epithelial Cells - UA 5-10 SEEN /hpf (5-10); White Blood Cells 0-5 SEEN /hpf (0-5)
[2024-03-13] MEDS: 0.9% Normal Saline (1000mL) 1,000 ML 150 ML IV (11:28)
--- NOTE | 2024-03-13 11:56 | CT_ITS ---
HISTORY: abdominal pain. TECHNIQUE: Helically acquired images were obtained of the abdomen and pelvis without oral or IV contrast. A radiation dose optimization technique was used for this scan. 549 images. COMPARISON: 11/11/2020. FINDINGS: LOWER CHEST: Lung bases clear. BOWEL: Bowel including appendix nondilated. No focal pericolonic inflammatory change. PERITONEUM: No significant free fluid. LIVER: Fatty infiltration, enlarged. Hemangioma in the right lobe not well visualized on noncontrast examination. GALLBLADDER/BILIARY TREE: Cholecystectomy. SPLEEN/PANCREAS/ADRENAL GLANDS: Nonenlarged. KIDNEYS AND URETERS: No nephrolithiasis or obstructing ureteral calculus. VESSELS: No abdominal aortic aneurysm. PELVIC ORGANS: Absent uterus. ABDOMINAL WALL: Lower anterior scarring without fluid collection. BONES: Intact. CT/Abdomen/Pelvis without Cont IMPRESSION: No acute abnormality identified. Hepatic steatosis with hepatomegaly. Electronically Signed: Rosy Aguilar MD at 13:15 EDT ,
--- NOTE | 2024-03-13 14:41 | ED.RN ---
this rn asks [facility] if she is able to help this rn find out about pts scheduled dose of Diflucan. Per pharmacy to [facility], they were unaware of it and they will get started on it and send when finished.
== END 2024-03-13 17:04 | disposition home or self-care (01) ==
PROVIDERS: Emergency Provider Emergency Medicine; Visit Provider Emergency Medicine
DX: B37.9 Candidiasis, unspecified (principal); R53.1 Weakness; J45.909 Unspecified asthma, uncomplicated; K21.9 Gastro-esophageal reflux disease without esophagitis; Z87.891 Personal history of nicotine dependence; Z79.899 Other long term (current) drug therapy
CPT/HCPCS: 74176; 80053; 81001; 83605; 85025; 87040; 87631; 96365; 96366; 99284; J7030; J7050; A4216

== ENCOUNTER → 2024-04-26 | Outpatient (CLI) | payer OTHER, SELFPAY ==
--- NOTE | 2024-04-26 08:42 | US_ITS ---
STUDY: ABDOMINAL ULTRASOUND - RIGHT UPPER QUADRANT; ELASTOGRAPHY REASON FOR VISIT: Female, 44 years old. Liver fibrosis. TECHNIQUE: Ultrasound evaluation of the right upper quadrant was performed with real-time and static lin-scale imaging. Point quantification shear wave elastography was performed ([employer]). TECHNICAL QUALITY: Limited. Examination limited due to a combination of factors including obesity and bowel gas. COMPARISON: Comparison made with prior CT scan abdomen and pelvis dated March 13, 2024. FINDINGS: Liver: The liver is enlarged and measures 19.6 cm. There is increased echogenicity consistent with fatty infiltration. The bile ducts are within normal limits. There is hepatic color flow. The direction of portal flow is hepatopetal. There is a 4.7 cm x 4 cm x 3.5 cm hypoechoic nodule in the left lobe of the liver. A similar appearing hypoechoic nodule is seen in the right lobe measuring 6.1 cm x 6.2 cm x 4.3 cm. Correlation with unenhanced CT scan of the abdomen and pelvis recommended for further evaluation. Median liver stiffness measured 6.8 kPa. Gallbladder: The patient is status post cholecystectomy. Common Bile Duct (C.B.D.): The common bile duct measures 4.4 mm. Pancreas: There is normal echogenicity of the visualized pancreas. There is no demonstrated pancreatic mass or cyst. Right Kidney: Normal size of the right kidney. The right kidney measures 11.5 cm x 6 cm x 5.2 cm. Normal renal cortex. The right cortex measures 1.7 cm. There is no demonstrated renal mass or cyst. There is no right hydronephrosis. IMPRESSION: 1. Liver stiffness measures 6.8 kPa compatible with F2-F3 (Mild to moderate liver fibrosis) Metavir score. 2. 4.7 cm x 4 cm x 3.5 cm hypoechoic nodule in the left lobe of the liver. A similar appearing hypoechoic nodule measuring 6.1 cm x 6.2 cm x 4.3 cm is seen in the right lobe. Correlation with enhanced CT scan abdomen and pelvis recommended. Electronically Signed: Marcio Lorenz MD at 9:30 EDT , STUDY: ABDOMINAL ULTRASOUND - LEFT UPPER QUADRANT REASON FOR EXAM: Female, 44 years old. Liver fibrosis, Hemangioma -- including spleen. TECHNIQUE: Transabdominal ultrasound was performed with real-time and static lin scale imaging. TECHNICAL QUALITY: Adequate. COMPARISON: None. FINDINGS: Spleen: Splenomegaly. The spleen measures 12.1 cm x 7.1 cm x 5.5 cm. US/ABD Limited w/ Elastography IMPRESSION: Mild splenomegaly. Electronically Signed: Marcio Lorenz MD at 9:30 EDT ,
== END | disposition home or self-care (01) ==
LOC: US 08:41
PROVIDERS: Referring Provider Internal Medicine; Visit Provider Internal Medicine
DX: K76.0 Fatty (change of) liver, not elsewhere classified (principal); K31.84 Gastroparesis; D18.03 Hemangioma of intra-abdominal structures; Z87.19 Personal history of other diseases of the digestive system
CPT/HCPCS: 76705; 76981

== ENCOUNTER 2024-05-08 08:31 | Outpatient (RCR) | payer OTHER, SELFPAY | END 2024-05-10 23:59 | LOC: NS 08:31 | PROVIDERS: Referring Provider Internal Medicine; Visit Provider Internal Medicine | DX: Z71.3 Dietary counseling and surveillance (principal); R73.03 Prediabetes; K31.84 Gastroparesis; K76.0 Fatty (change of) liver, not elsewhere classified | CPT/HCPCS: 97802 ==

== ENCOUNTER → 2024-06-26 | Outpatient (CLI) | payer OTHER, SELFPAY | END | disposition home or self-care (01) | LOC: LABSPEC 16:38 | PROVIDERS: Referring Provider Nurse Practitioner Women's Health; Visit Provider Nurse Practitioner Women's Health | DX: B37.31 Acute candidiasis of vulva and vagina (principal); R30.0 Dysuria | CPT/HCPCS: 87070; 87086; 87205 ==

== ENCOUNTER → 2024-08-01 | Outpatient (CLI) | payer OTHER, SELFPAY | END | disposition home or self-care (01) | LOC: BWCLAB 10:23 | PROVIDERS: Referring Provider Nurse Practitioner Women's Health; Visit Provider Nurse Practitioner Women's Health | DX: N94.89 Other specified conditions associated with female genital organs and menstrual cycle (principal) | CPT/HCPCS: 87070; 87205 ==

== ENCOUNTER → 2024-10-09 | Outpatient (CLI) | payer OTHER, SELFPAY ==
--- NOTE | 2024-10-09 07:17 | CT_ITS ---
PROCEDURE: CT ABD/PELVIS W/WO CONTRAST 10/09/2024 REASON FOR EXAM: LIVER MASS, HYPOECHOID MASS X2,POSSIBLE HEMANGIOMA TECHNIQUE: Abdomen and pelvis CT with intravenous contrast. Coronal and Sagittal reconstruction series were provided. PATIENT PREPARATION: Per protocol ORAL CONTRAST TYPE: None. CONTRAST: Isovue 370 VOLUME: 100mL One or more dose reduction techniques were used (e.g., Automated exposure control, adjustment of the mA and/or kV according to patient size, use of iterative reconstruction technique. RADIATION DOSE SUMMARY: CTDlvol: 26 mGy DLP: 3735.81 mGycm COMPARISON: Comparison is made with prior study dated May 13, 2024. FINDINGS: Lung bases: Unremarkable. Liver: There is a 4.9 cm by 5.3 cm hypodense mass in the inferior aspect of the right lobe of the liver. Enhancement with partial filling on the delayed images. This is suggestive of an hepatic hemangioma. There is also evidence of a 3 cm x 3.9 cm cystic structure in the inferior aspect of the caudate lobe of the liver. Gallbladder: Surgically absent. Spleen: Normal size. Pancreas: Normal size without evidence of mass surrounding inflammation or ductal dilation. Adrenals: Unremarkable Kidneys: Normal renal sizes. No hydronephrosis. Normal cortical enhancement. Bladder: Not imaged. Reproductive Organs: Not imaged Bowel: No bowel obstruction. Appendix: Not imaged. Lymph nodes: No suspicious lymph node enlargement. Vasculature: The abdominal aorta and IVC are normal. Bones: Degenerative changes of the spine. CT/CT Abd/Pelvis W/WO Contrast IMPRESSION: Findings suggestive of a 4.9 cm 5.3 cm hemangioma in the inferior aspect of the right lobe of the liver as well as a 3 cm x 3.9 cm cyst in the inferior aspect of the caudate lobe of the liver. Reading Location: [place] [id number]
== END | disposition home or self-care (01) ==
LOC: CT 07:14
PROVIDERS: Referring Provider Internal Medicine; Visit Provider Internal Medicine
DX: K76.0 Fatty (change of) liver, not elsewhere classified (principal); D18.03 Hemangioma of intra-abdominal structures
CPT/HCPCS: 74178; Q9967

== ENCOUNTER → 2024-12-17 | Outpatient (CLI) | payer OTHER, SELFPAY ==
--- NOTE | 2024-12-17 12:20 | CT_ITS ---
PROCEDURE: LIMITED CHEST CT CARDIAC ONLY REASON FOR EXAM: CHEST PAIN TECHNIQUE: Supine chest CT following 100 mL of Isovue-300 contrast,. One or more dose reduction techniques were used (e.g., Automated exposure control, adjustment of the mA and/or kV according to patient size, use of iterative reconstruction technique). Dose report: CTDI L volume: 49 mGy. DLP. 1823.86 COMPARISON: None FINDINGS: Hardware: None Lymph nodes: No mediastinal hilar or axillary lymphadenopathy. Heart and Vasculature: Minimal coronary artery calcification. Coronary Artery Calcifications: Minimal coronary artery calcification. Lungs and Airways: Unremarkable Pleura: No pleural effusion. CT/Limited Chest CT Cardiac Only IMPRESSION: Coronary artery calcification (CAC) is minimal coronary artery calcification. Reading Location: [place] [id number]
[2024-12-17 12:38] VITALS: BP 135/67; PULSE 67; RESP 16; O2SAT 98; BMI 42.0
[2024-12-17 12:51] VITALS: PULSE 67
[2024-12-17] MEDS: Nitroglycerin SL (ED/IMG/CATH) 0.4 MG TABLET SL (12:51)
[2024-12-17 12:57] VITALS: BP 126/54; PULSE 73; RESP 16; O2SAT 99
--- NOTE | 2024-12-24 20:24 | CCTA.WCONT ---
CCTA w/Cont Coronary Arteries Date of Study:: 12/17/24 Chest pain Coronary Calcium Scoring: High-resolution Computed Tomographic imaging of the chest was performed on [12/17/2024], with particular attention paid to the coronary arteries. Intravenous contrast agent was administered per protocol and images reconstructed and displayed. LEFT MAIN CORONARY ARTERY: Arises from the left main coronary cusp and bifurcates the left anterior descending artery and left circumflex artery. No high-grade stenosis noted in this vessel. [] LEFT ANTERIOR DESCENDING CORONARY ARTERY: This arises from the left main coronary cusp and gives of the first diagonal vessel. Mild luminal irregularities only noted no high-grade stenosis is present. [] LEFT CIRCUMFLEX CORONARY ARTERY: Nondominant vessel with mild luminal irregularities present only. [] RIGHT CORONARY ARTERY: Dominant right coronary artery arises from the right coronary cusp with no high-grade stenosis present. [] THORACIC AORTA: [] PULMONARY ARTERY: [] LEFT ATRIUM/APPENDAGE: [] MITRAL VALVE: [] AORTIC VALVE: [] LEFT VENTRICLE: [] CORONARY CALCIUM SCORE: Not performed [] Calcium Scoring Interpretation: Different methods to categorize the overall amount of coronary plaque. Overall amount CAC SIS Visual of coronary plaque P1 Mild -100 <2 1-2 vessels with mild amount of plaque P2 Moderate 101-300 3-4 1-2 vessels with moderate amount, 3 vessels with mild amount of plaque P3 Severe 301-999 5-7 3 vessels with moderate amount, 1 vessel with severe amount of plaque P4 Extensive >1000 >8 2-3 vessels with severe amount of plaque Conclusion: Mild coronary atherosclerotic plaquing only present.
== END | disposition home or self-care (01) ==
LOC: CT 12:18
PROVIDERS: Referring Provider Internal Medicine Cardiovascular Disease; Visit Provider Internal Medicine Cardiovascular Disease
DX: R07.9 Chest pain, unspecified (principal); R00.2 Palpitations
CPT/HCPCS: 75574; 76380; Q9967